=== PATIENT | female | born 1965 | race African-American/Black ===

== ENCOUNTER 2016-09-17 13:51 | Emergency (ER) | payer OTHER ==
--- NOTE | 2016-09-17 14:55 | ER Document Report ---
ED Medical Screen (RME) - General Chief Complaint: Chest Pain > 30 Stated Complaint: CHEST PAIN,HEADACHE,BLURRED VISION Notes: This 50-year-old female patient comes emergency room complaining of chest pain that started today, a right frontal headache, and blurry vision that comes and goes. She has had some recent stressful situations with her daughter, the symptoms started after her daughter came back to the house today. She does have a history of trigeminal neuralgia on the right side but this is nothing like a trigeminal neuralgia pain. She did have a CVA in May 2016. The right posterior cervical muscles and right parietal frontal scalp muscles are very tender to palpate. I have greeted and performed a rapid initial assessment of this patient. A comprehensive ED assessment and evaluation of the patient, analysis of test results and completion of the medical decision making process will be conducted by additional ED providers. TRAVEL OUTSIDE OF THE [place] IN LAST 30 DAYS: No - Related Data Allergies/Adverse Reactions: amoxicillin trihydrate [From Augmentin] Allergy (Unknown, Verified 09/17/16 14: 34) rash/hives Iodinated Contrast Media - Oral and [IV Dye, Iodine Containing] Allergy (Unknown , Verified 09/17/16 14:34) breathing problems Potassium Clavulanate * [From Augmentin] Allergy (Unknown, Verified 09/17/16 14: 34) rash/hives oxcarbazepine [From Trileptal] Allergy (Verified 09/17/16 14:34) Generalized rash Past Medical History - Past Medical History Cardiac Medical History: Reports: Hx Hypercholesterolemia, Hx Hypertension, Hx Heart Murmur - MVP Pulmonary Medical History: Reports: Hx Bronchitis, Hx Pneumonia Renal/ Medical History: Reports: Hx Ovarian Cysts - ovaries removed. Denies: Hx Peritoneal Dialysis GI Medical History: Reports: Hx Gastroesophageal Reflux Disease Musculoskeltal Medical History: Psychiatric Medical History: Reports: Hx Depression - MDD Infectious Medical History: Past Surgical History: Reports: Hx Cardiac Catheterization, Hx Cardiac Surgery - Pacemaker for sick sinus syndrome, Hx Section, Hx Hysterectomy, Hx Neurologic Surgery - Two procedures for right-sided trigeminal neuralgia, Hx Pacemaker - for SSS in July of 2012 - Immunizations Hx Diphtheria, Pertussis, Tetanus Vaccination: Yes Physical Exam - Vital signs Vitals: Temp Pulse Resp BP Pulse Ox 98.3 F 71 24 H 111/76 95 09/17/16 14:28 09/17/16 14:28 09/17/16 14:28 09/17/16 14:28 09/17/16 14:28 Course - Vital Signs Vital signs: Temp Pulse Resp BP Pulse Ox 98.3 F 71 24 H 111/76 95 09/17/16 14:28 09/17/16 14:28 09/17/16 14:28 09/17/16 14:28 09/17/16 14:28
[2016-09-17 15:15] LABS: ABSOLUTE EOSINOPHILS # (AUTO) 0.2 10^3/uL (0.0-0.6); ABSOLUTE MONOCYTES (AUTO) 0.5 10^3/uL (0.1-1.4); ABSOLUTE NEUT (AUTO) 4.4 10^3/uL (1.7-8.2); BASOPHILS % (AUTO) 0.4 % (0-2); EOSINOPHILS % (AUTO) 3.3 % (0-6); HEMOGLOBIN 12.2 g/dL (12.0-15.5); HGB HCT DIFFERENCE 0.6; LYMPHOCYTES % (AUTO) 27.6 % (13-45); MEAN CORPUSCULAR HEMOGLOBIN 29.6 pg (27.0-33.4); MEAN CORPUSCULAR HGB CONC 33.7 g/dL (32.0-36.0); MEAN CORPUSCULAR VOLUME 88 fl (80-97); MONOCYTES % (AUTO) 6.4 % (3-13); RED BLOOD COUNT 4.11 10^6/uL (3.72-5.28); RED CELL DISTRIBUTION WIDTH 13.6 % (11.5-14.0); SEGMENTED NEUTROPHILS % (AUTO) 62.3 % (42-78); WHITE BLOOD COUNT 7.1 10^3/uL (4.0-10.5)
[2016-09-17 15:21] LABS: APPEARANCE,URINE CLEAR; BILIRUBIN,URINE NEGATIVE (NEGATIVE); GLUCOSE, URINE NEGATIVE (NEGATIVE); KETONES,URINE NEGATIVE (NEGATIVE); LEUKOCYTE ESTERASE,URINE NEGATIVE (NEGATIVE); NITRITE,URINE NEGATIVE (NEGATIVE); PROTEIN,URINE NEGATIVE (NEGATIVE); URINE SPECIFIC GRAVITY 1.005; UROBILINOGEN,URINE NEGATIVE mg/dL (<2.0)
[2016-09-17 15:34] LABS: ALANINE AMINOTRANSFERASE 37 U/L (9-52); ALBUMIN 4.2 g/dL (3.5-5.0); ALKALINE PHOSPHATASE 53 U/L (38-126); ANION GAP 13 (5-19); ASPARTATE AMINO TRANSFERASE 25 U/L (14-36); BILIRUBIN,DIRECT 0.4 mg/dL (0.0-0.4); BILIRUBIN,TOTAL 0.8 mg/dL (0.2-1.3); BLOOD UREA NITROGEN 15 mg/dL (7-20); CALCIUM 9.6 mg/dL (8.4-10.2); CARBON DIOXIDE 25 mmol/L (22-30); CHLORIDE 106 mmol/L (98-107); CREATINE KINASE 103 U/L (30-135); CREATININE RESULT 0.94 mg/dL (0.52-1.25); GLUCOSE 91 mg/dL (75-110); POTASSIUM 4.2 mmol/L (3.6-5.0); SODIUM 143.5 mmol/L (137-145); TOTAL PROTEIN 7.5 g/dL (6.3-8.2)
[2016-09-17 15:46] LABS: CREATINE KINASE MB 0.84 ng/mL (<4.55)
[2016-09-17 15:49] LABS: TROPONIN I 0.037 ng/mL
--- NOTE | 2016-09-17 18:59 | EKG REPORT ---
SEVERITY:- OTHERWISE NORMAL ECG - SINUS RHYTHM BORDERLINE LEFT AXIS DEVIATION : Confirmed by: John Palomino 17-Sep-2016 18:59:22
--- NOTE | 2016-09-17 19:51 | ER Document Report ---
ED General - General Chief Complaint: Chest Pain > 30 Stated Complaint: CHEST PAIN,HEADACHE,BLURRED VISION Notes: Patient is a 50-year-old female with past medical history of fibromyalgia, chronic anxiety, frequent chest pain with a normal stress test in 2016, normal cardiac catheterization 2011, and is scheduled for a repeat stress test in the next 30 days presents with an episode of chest pain after argument with her daughter. States that she had into very heated argument with her child and began to develop a dull, burning retrosternal pain. Denies any radiation of the pain. No associated nausea, vomiting or diaphoresis. States she's had similar episodes in the past after stressful events. She denies any history of ACS or acute pulmonary embolus. At the time of my evaluation she denies any ongoing pain. She did take nitroglycerin which she states did not change her pain when it was present. Nothing worsens the pain. She has not seen her primary care doctor regarding today's concerns. TRAVEL OUTSIDE OF THE [place] IN LAST 30 DAYS: No - Related Data Allergies/Adverse Reactions: amoxicillin trihydrate [From Augmentin] Allergy (Unknown, Verified 09/17/16 14: 34) rash/hives Iodinated Contrast Media - Oral and [IV Dye, Iodine Containing] Allergy (Unknown , Verified 09/17/16 14:34) breathing problems Potassium Clavulanate * [From Augmentin] Allergy (Unknown, Verified 09/17/16 14: 34) rash/hives oxcarbazepine [From Trileptal] Allergy (Verified 09/17/16 14:34) Generalized rash Past Medical History - General Information source: Patient - Social History Smoking Status: Never Smoker Frequency of alcohol use: None Drug Abuse: None Lives with: Family Family History: Reviewed & Not Pertinent Patient has suicidal ideation: No Patient has homicidal ideation: No - Past Medical History Cardiac Medical History: Reports: Hx Hypercholesterolemia, Hx Hypertension, Hx Heart Murmur - MVP Pulmonary Medical History: Reports: Hx Bronchitis, Hx Pneumonia Renal/ Medical History: Reports: Hx Ovarian Cysts - ovaries removed. Denies: Hx Peritoneal Dialysis GI Medical History: Reports: Hx Gastroesophageal Reflux Disease Musculoskeltal Medical History: Psychiatric Medical History: Reports: Hx Depression - MDD Infectious Medical History: Past Surgical History: Reports: Hx Cardiac Catheterization, Hx Cardiac Surgery - Pacemaker for sick sinus syndrome, Hx Section, Hx Hysterectomy, Hx Neurologic Surgery - Two procedures for right-sided trigeminal neuralgia, Hx Pacemaker - for SSS in July of 2012 - Immunizations Hx Diphtheria, Pertussis, Tetanus Vaccination: Yes Hx Pneumococcal Vaccination: 06/03/10 Review of Systems - Review of Systems Notes: Constitutional: Negative for fever. HENT: Negative for sore throat. Eyes: Negative for visual changes. Cardiovascular: Positive for chest pain. Respiratory: Negative for shortness of breath. Gastrointestinal: Negative for abdominal pain, vomiting or diarrhea. Genitourinary: Negative for dysuria. Musculoskeletal: Negative for back pain. Skin: Negative for rash. Neurological: Negative for headaches, weakness or numbness. 10 point ROS negative except as marked above and in HPI. Physical Exam - Vital signs Vitals: Temp Pulse Resp BP Pulse Ox 98.3 F 71 24 H 111/76 95 09/17/16 14:28 09/17/16 14:28 09/17/16 14:28 09/17/16 14:28 09/17/16 14:28 Interpretation: Tachypneic - Resolved at the time of my assessment Notes: PHYSICAL EXAMINATION: GENERAL: Well-appearing, well-nourished and in no acute distress. HEAD: Atraumatic, normocephalic. EYES: Pupils equal round and reactive to light, extraocular movements intact, sclera anicteric, conjunctiva are normal. ENT: nares patent, oropharynx clear without exudates. Moist mucous membranes. NECK: Normal range of motion, supple without lymphadenopathy LUNGS: Breath sounds clear to auscultation bilaterally and equal. No wheezes rales or rhonchi. HEART: Regular rate and rhythm without murmurs ABDOMEN: Soft, nontender, normoactive bowel sounds. No guarding, no rebound. No masses appreciated. EXTREMITIES: Normal range of motion, no pitting or edema. No cyanosis. NEUROLOGICAL: No focal neurological deficits. Moves all extremities spontaneously and on command. PSYCH: Normal mood, normal affect. SKIN: Warm, Dry, normal turgor, no rashes or lesions noted. Course - Re-evaluation Re-evalutation: 09/17/16 19:49 Presentation of chest pain in an otherwise well appearing patient. Low clinical suspicion for ACS given clinical history, exam, EKG without ST elevations or depressions, initial troponin marginally above lower range of normal at 0.036. Will obtain a second troponin to trend. HEART score less than or equal to 3. PE also seems unlikely given clinical history, absence of tachycardia or dyspnea. Well's score is 0. CXR without evidence of pneumothorax or pneumonia. No widened mediastinum. Aortic dissection also seems unlikely given history, symmetric pulses, CXR, and vitals. Patient herself admits that her chest pain has resolved at this point and that she feels this episode was related to a very stressful argument with her daughter. Of note, patient probably complained of which headache in triage but denied this complaint to me. CT of the head was obtained for unclear concern and is noted to be normal. Her report of that event appears to be a tension-type headache that has completely resolved. I do not suspect an acute subarachnoid hemorrhage based on her characterization of the headache or the onset. HEART Score: History:0 EC Age:1 Risk Factors:1 Troponin:1 Total: 3 09/17/16 22:00 Second troponin has gone back to the upper limit of normal at 0.034 making an ischemic event as the cause of her chest pain extremely unlikely. Final assessment: Chest pain in a patient without evidence of cardiac or other serious etiology on workup today. I discussed with patient that, based on their age, risk factors and emergency department testing today, the likelihood that their symptoms are related to a heart attack is very low (estimated risk of heart attack or over the next 30 days of less than 1%). The patient demonstrates decision making capacity and has verbalized an understanding of these risks to me. Based on this, the patient has chosen to follow-up as an outpatient. Usual chest pain return precautions reviewed. The patient states understanding and agreement with this plan. - Vital Signs Vital signs: Temp Pulse Resp BP Pulse Ox 98.3 F 70 16 115/75 97 09/17/16 14:28 09/17/16 22:23 09/17/16 22:23 09/17/16 22:23 09/17/16 22:23 - Laboratory Result Diagrams: 09/17/16 14:50 09/17/16 14:50 - Diagnostic Test Radiology reviewed: Image reviewed, Reports reviewed Radiology results interpreted by me: 09/17/16 19:53 Chest x-ray: No acute infiltrate or widened mediastinum - EKG Interpretation by Me Additional EKG results interpreted by me: 09/17/16 19:53 Normal sinus rhythm. Rate 74. No ST elevations or depressions. QTC is 432. Discharge - Discharge Clinical Impression: Chest pain Qualifiers: Chest pain type: other chest pain Qualified Code(s): R07.89 - Other chest pain Condition: Good Disposition: HOME, SELF-CARE Additional Instructions: You were seen today for chest pain. The exact cause of your pain is unclear. However, based on your cardiac enzyme testing, chest x-ray, and EKG it does not appear that it is from an immediately life-threatening cause at this time. Although your testing here is normal is critical that you follow-up with your primary care physician for continued evaluation of this chest pain and possible stress testing. I recommended you see your physician within the next 24-48 hours to be evaluated for consideration of a stress test. Please return to emergency department immediately if you have worsening of your chest pain, shortness of breath, vomiting, become unable to exert yourself due to pain or difficulty breathing, you pass out, or have any pain that radiates into your arms, jaw, or back. Please also return if you have any additional symptoms that are concerning to you.
[2016-09-17 22:23] VITALS: BP 115/75
== END 2016-09-17 22:23 | disposition home or self-care (01) ==
LOC: ER 13:51
DX: R07.89 Other chest pain (principal); R51 Headache; H53.8 Other visual disturbances; E78.00 Pure hypercholesterolemia, unspecified; I10 Essential (primary) hypertension; Z95.0 Presence of cardiac pacemaker
CPT/HCPCS: 36415; 70450; 80053; 81001; 82550; 82553; 84484; 85025; 93005; 93010; 99285

== ENCOUNTER 2016-10-08 16:43 | Emergency (ER) | payer OTHER ==
[2016-10-08] MEDS ORDERED: ASPIRIN 81 MG TABLET, CHEWABLE PO ONE (17:15)
--- NOTE | 2016-10-08 17:16 | ER Document Report ---
ED Medical Screen (RME) - General Chief Complaint: Chest Pain Stated Complaint: CHEST PAIN Time Seen by Provider: 10/08/16 17:11 TRAVEL OUTSIDE OF THE [place] IN LAST 30 DAYS: No - HPI Notes: 10/08/16 17:15 Patient coming in for evaluation of chest pressure starting approximately one hour prior to arrival [facility] 10/08/16 17:15 Patient was recently seen for similar symptoms - Related Data Allergies/Adverse Reactions: amoxicillin trihydrate [From Augmentin] Allergy (Unknown, Verified 10/08/16 17: 02) rash/hives Iodinated Contrast Media - Oral and [IV Dye, Iodine Containing] Allergy (Unknown , Verified 10/08/16 17:02) breathing problems Potassium Clavulanate * [From Augmentin] Allergy (Unknown, Verified 10/08/16 17: 02) rash/hives oxcarbazepine [From Trileptal] Allergy (Verified 10/08/16 17:02) Generalized rash Past Medical History - Past Medical History Cardiac Medical History: Reports: Hx Hypercholesterolemia, Hx Hypertension, Hx Heart Murmur - MVP Pulmonary Medical History: Reports: Hx Bronchitis, Hx Pneumonia Renal/ Medical History: Reports: Hx Ovarian Cysts - ovaries removed. Denies: Hx Peritoneal Dialysis GI Medical History: Reports: Hx Gastroesophageal Reflux Disease Musculoskeltal Medical History: Psychiatric Medical History: Reports: Hx Depression - MDD Infectious Medical History: Past Surgical History: Reports: Hx Cardiac Catheterization, Hx Cardiac Surgery - Pacemaker for sick sinus syndrome, Hx Section, Hx Hysterectomy, Hx Neurologic Surgery - Two procedures for right-sided trigeminal neuralgia, Hx Pacemaker - for SSS in July of 2012 - Immunizations Hx Diphtheria, Pertussis, Tetanus Vaccination: Yes Review of Systems - Review of Systems Cardiovascular: Chest pain Physical Exam - Vital signs Vitals: Temp Pulse Resp BP Pulse Ox 98.4 F 70 22 H 118/65 97 10/08/16 17:02 10/08/16 17:02 10/08/16 17:02 10/08/16 17:02 10/08/16 17:02 - Cardiovascular Rhythm: Regular Heart sounds: Normal auscultation Course - Re-evaluation Re-evalutation: 10/08/16 17:16 I have greeted and performed a rapid initial assessment of this patient. A comprehensive ED assessment and evaluation of the patient, analysis of test results and completion of the medical decision making process will be conducted by additional ED providers. - Vital Signs Vital signs: Temp Pulse Resp BP Pulse Ox 98.4 F 70 22 H 118/65 97 10/08/16 17:02 10/08/16 17:02 10/08/16 17:02 10/08/16 17:02 10/08/16 17:02
[2016-10-08 17:47] LABS: ABSOLUTE EOSINOPHILS # (AUTO) 0.3 10^3/uL (0.0-0.6); ABSOLUTE LYMPHOCYTES (AUTO) 2.6 10^3/uL (0.5-4.7); ABSOLUTE MONOCYTES (AUTO) 0.5 10^3/uL (0.1-1.4); ABSOLUTE NEUT (AUTO) 3.8 10^3/uL (1.7-8.2); BASOPHILS % (AUTO) 0.6 % (0-2); EOSINOPHILS % (AUTO) 4.2 % (0-6); HEMATOCRIT 37.6 % (36.0-47.0); HEMOGLOBIN 12.5 g/dL (12.0-15.5); HGB HCT DIFFERENCE -0.1; MEAN CORPUSCULAR HEMOGLOBIN 29.2 pg (27.0-33.4); MEAN CORPUSCULAR HGB CONC 33.4 g/dL (32.0-36.0); MEAN CORPUSCULAR VOLUME 88 fl (80-97); MONOCYTES % (AUTO) 7.2 % (3-13); RED BLOOD COUNT 4.29 10^6/uL (3.72-5.28); RED CELL DISTRIBUTION WIDTH 13.8 % (11.5-14.0); WHITE BLOOD COUNT 7.3 10^3/uL (4.0-10.5)
[2016-10-08 17:55] LABS: PROTHROMBIN TIME 12.1 SEC (11.4-15.4)
[2016-10-08 18:07] LABS: ALANINE AMINOTRANSFERASE 37 U/L (9-52); ALBUMIN 4.4 g/dL (3.5-5.0); ALKALINE PHOSPHATASE 52 U/L (38-126); ANION GAP 10 (5-19); ASPARTATE AMINO TRANSFERASE 21 U/L (14-36); BILIRUBIN,DIRECT 0.4 mg/dL (0.0-0.4); BILIRUBIN,TOTAL 0.7 mg/dL (0.2-1.3); BLOOD UREA NITROGEN 12 mg/dL (7-20); CARBON DIOXIDE 28 mmol/L (22-30); CHLORIDE 104 mmol/L (98-107); CREATINE KINASE 123 U/L (30-135); CREATININE RESULT 1.12 mg/dL (0.52-1.25); GLUCOSE 96 mg/dL (75-110); LIPASE 169.8 U/L (23-300); POTASSIUM 3.8 mmol/L (3.6-5.0); TOTAL PROTEIN 7.9 g/dL (6.3-8.2)
--- NOTE | 2016-10-08 18:10 | ER Document Report ---
ED Cardiac <JAIRO ALLISON - Last Filed: 10/08/16 20:40> - General Mode of Arrival: Ambulatory Information source: Patient TRAVEL OUTSIDE OF THE [place] IN LAST 30 DAYS: No - HPI Patient complains to provider of: Chest pain Associated symptoms: Other - See above <CARIN ELLER - Last Filed: 10/08/16 20:42> - General Chief Complaint: Chest Pain Stated Complaint: CHEST PAIN Time Seen by Provider: 10/08/16 17:11 Notes: Patient is a 51 year old female, with a past medical history including fibromyalgia, CVA, and has a pacemaker, who presents to the emergency department complaining of chest pain at around 1600 today. Patient states she has been running errands all day and was at the [facility] filling out paperwork when she started having a headache shortly after which she felt chest pain. Patient reports she took Nitro at home with some relief but still feels a pressure across her chest. Patient also complains of left sided jaw pain and some pain around her pacemaker which has been occurring for a while. Patient denies being on blood thinners, states she is currently taking Lipitor, omeprazol, trazodone , clonazepam, and no blood pressure medication. Patient has had a catheterization done in the past and does not have CAD. Patient reports she has appointments with Dr. Gilman later this month and next for cardiac testing. (CARIN ELLER) - Related Data Allergies/Adverse Reactions: amoxicillin trihydrate [From Augmentin] Allergy (Unknown, Verified 10/08/16 17: 02) rash/hives Iodinated Contrast Media - Oral and [IV Dye, Iodine Containing] Allergy (Unknown , Verified 10/08/16 17:02) breathing problems Potassium Clavulanate * [From Augmentin] Allergy (Unknown, Verified 10/08/16 17: 02) rash/hives oxcarbazepine [From Trileptal] Allergy (Verified 10/08/16 17:02) Generalized rash Past Medical History - General Information source: Patient - Social History Smoking Status: Unknown if Ever Smoked Family History: Reviewed & Not Pertinent Patient has suicidal ideation: No Patient has homicidal ideation: No - Past Medical History Cardiac Medical History: Reports: Hx Hypercholesterolemia, Hx Hypertension, Hx Heart Murmur - MVP Pulmonary Medical History: Reports: Hx Bronchitis, Hx Pneumonia Renal/ Medical History: Reports: Hx Ovarian Cysts - ovaries removed GI Medical History: Reports: Hx Gastroesophageal Reflux Disease Musculoskeltal Medical History: Psychiatric Medical History: Reports: Hx Depression - MDD Infectious Medical History: Past Surgical History: Reports: Hx Cardiac Catheterization, Hx Cardiac Surgery - Pacemaker for sick sinus syndrome, Hx Section, Hx Hysterectomy, Hx Neurologic Surgery - Two procedures for right-sided trigeminal neuralgia, Hx Pacemaker - for SSS in July of 2012 - Immunizations Hx Diphtheria, Pertussis, Tetanus Vaccination: Yes Hx Pneumococcal Vaccination: 06/03/10 <CARIN ELLER - Last Filed: 10/08/16 20:42> Review of Systems - Review of Systems Neurological/Psychological: Gait changes - Patient reports a residual right lower extremity problem in that she has trouble lifting her leg up as high as she did prior to her stroke, Numbness - Patient has residual numbness to the right face that tends to come and go. <JAIRO ALLISON - Last Filed: 10/08/16 20:40> - Review of Systems Constitutional: No symptoms reported EENT: See HPI, Throat pain - jaw pain Cardiovascular: See HPI, Chest pain Respiratory: No symptoms reported Gastrointestinal: No symptoms reported Genitourinary: No symptoms reported Female Genitourinary: No symptoms reported Musculoskeletal: No symptoms reported Skin: No symptoms reported Hematologic/Lymphatic: No symptoms reported Neurological/Psychological: See HPI, Headaches -: Yes All other systems reviewed and negative <CARIN ELLER - Last Filed: 10/08/16 20:42> Physical Exam - Vital signs Interpretation: Normal - General General appearance: Appears well, Alert - HEENT Head: Normocephalic, Atraumatic Neck: Other - Left jaw is tender to palpation, TMJ not tender, post cervical muscles not tender - Respiratory Respiratory status: No respiratory distress Chest status: Tender - Left sided anterior chest wall tenderness to palpation Breath sounds: Normal Chest palpation: Normal - Cardiovascular Rhythm: Regular Heart sounds: Normal auscultation Murmur: No - Abdominal Inspection: Obese Distension: No distension Bowel sounds: Normal Tenderness: Nontender Organomegaly: No organomegaly - Extremities General upper extremity: Normal inspection General lower extremity: Normal inspection - Neurological Neuro grossly intact: Yes Cognition: Normal Orientation: AAOx4 Hensley Coma Scale Eye Opening: Spontaneous Lucian Coma Scale Verbal: Oriented Lucian Coma Scale Motor: Obeys Commands Hensley Coma Scale Total: 15 Speech: Normal - Psychological Associated symptoms: Normal affect, Normal mood - Skin Skin Temperature: Warm Skin Moisture: Dry Skin Color: Normal <CARIN ELLER - Last Filed: 10/08/16 20:42> - Vital signs Vitals: Temp Pulse Resp BP Pulse Ox 98.4 F 70 22 H 118/65 97 10/08/16 17:02 10/08/16 17:02 10/08/16 17:02 10/08/16 17:02 10/08/16 17:02 Course - Laboratory Result Diagrams: 10/08/16 17:25 10/08/16 17:25 - Diagnostic Test Radiology reviewed: Image reviewed, Reports reviewed - Mild basilar subsegmental atelectasis, left greater than right. Pacemaker is seen. - EKG Interpretation by Md EKG shows normal: Sinus rhythm, [place], Intervals, QRS Complexes. abnormal: ST-T Waves - Borderline anterior lateral T-wave abnormalities Rate: Normal - 69 Rhythm: NSR When compared to previous EKG there are: No significant change <JAIRO ALLISON - Last Filed: 10/08/16 20:40> - Laboratory Result Diagrams: 10/08/16 17:25 10/08/16 17:25 <CARIN ELLER - Last Filed: 10/08/16 20:42> - Re-evaluation Re-evalutation: 10/08/16 20:28 The patient's initial troponin and repeat troponin are in the low indeterminate range, they were in the same range when she was here about a month ago complaining of chest pain and when she was admitted for stroke in the end of May 2016. She has had a cardiac catheter in the past that did not show coronary artery disease. Her EKG today does not show any acute changes, and is essentially unchanged from prior visits. She does have reproducible chest wall pain and left jaw pain. (JAIRO ALLISON) - Vital Signs Vital signs: Temp Pulse Resp BP Pulse Ox 98.4 F 70 15 99/70 L 97 10/08/16 17:02 10/08/16 17:02 10/08/16 18:01 10/08/16 18:01 10/08/16 18:01 - Laboratory Laboratory results interpreted by me: 10/08/16 17:25 Est GFR (Non-Af Amer) 51 L Discharge <JAIRO ALLISON - Last Filed: 10/08/16 20:40> <CARIN ELLER - Last Filed: 10/08/16 20:42> - Discharge Clinical Impression: Chest pain, Jaw pain, non-TMJ Condition: Stable Disposition: HOME, SELF-CARE Additional Instructions: Chest Pain of Unclear Cause: The exact cause of your chest pain isn't clear. Fortunately, there is no evidence of a dangerous medical condition. Further testing may be required to find the source of the pain. Most often, we find that this pain is coming from the chest wall -- the muscles or rib joints in the chest. But chest pain can come from the lung and lung lining, the esophagus, the heart valves or heart lining, and even the stomach or gallbladder. Rest. Eat lightly until the pain is gone. We may prescribe medicine for pain and inflammation. You should call the physician immediately if the pain radiates to the shoulder, jaw or arms; if you start to run a fever or develop a cough; or if you develop shortness of breath, or other new or alarming symptoms. CONTINUE YOUR REGULAR MEDICATIONS. FOLLOW UP WITH YOUR DOCTOR. RETURN TO THE EMERGENCY ROOM IF ANY NEW OR WORSENING SYMPTOMS. Referrals: JOHNNY JUDD FNP [Primary Care Provider] - Follow up as needed Scribe Attestation: 10/08/16 20:41 I personally performed the services described in the documentation, reviewed and edited the documentation which was dictated to the scribe in my presence, and it accurately records my words and actions. (JAIRO ALLISON) Scribe Documentation - Scribe Written by Eitan:: eitan Garcia, 10/08/16 1830 acting as scribe for :: Briseida <CARIN ELLER - Last Filed: 10/08/16 20:42>
[2016-10-08 18:18] LABS: CREATINE KINASE MB 0.89 ng/mL (<4.55)
[2016-10-08 18:21] LABS: TROPONIN I 0.038 ng/mL
[2016-10-08 20:21] LABS: CREATINE KINASE MB 0.72 ng/mL (<4.55); TROPONIN I 0.041 ng/mL
[2016-10-08 20:54] VITALS: BP 108/74
--- NOTE | 2016-10-08 21:34 | EKG REPORT ---
SEVERITY:- BORDERLINE ECG - SINUS RHYTHM : Confirmed by: John Palomino 08-Oct-2016 21:33:17
== END 2016-10-08 20:54 | disposition home or self-care (01) ==
LOC: ER 16:43
DX: R07.89 Other chest pain (principal); R68.84 Jaw pain; K21.9 Gastro-esophageal reflux disease without esophagitis; R26.89 Other abnormalities of gait and mobility; R51 Headache; R20.0 Anesthesia of skin; I10 Essential (primary) hypertension; I49.5 Sick sinus syndrome; Z95.0 Presence of cardiac pacemaker; Z86.73 Personal history of transient ischemic attack (TIA), and cerebral infarction without residual deficits; Z79.899 Other long term (current) drug therapy; Z88.0 Allergy status to penicillin; Z91.041 Radiographic dye allergy status; Z88.8 Allergy status to other drugs, medicaments and biological substances; E78.00 Pure hypercholesterolemia, unspecified
CPT/HCPCS: 36415; 71010; 80053; 82550; 82553; 83690; 84484; 85025; 85379; 85610; 93005; 93010; 99285

== ENCOUNTER 2016-12-20 18:17 | Emergency (ER) | payer OTHER ==
--- NOTE | 2016-12-20 19:11 | ER Document Report ---
HPI - HPI Patient complains to provider of: Left-sided neck pain Onset: Other - 5 Weeks Onset/Duration: Waxing and waning Quality of pain: Burning Pain Level: 2 Context: patient complains of left side neck pain off and on for the past 5 weeks. Patient states episodes will last just a few seconds to upwards as long as an hour. Patient states pain is burning in nature. States that she is also had pain radiating up the side of her neck for the past 2-3 days. Patient states this pain is more constant and dull in nature. Patient denies any fever, sore throat. Does report some sinus congestion recently. Associated Symptoms: Earache, Other - neck pain. denies: Chest pain, Productive cough Exacerbated by: Denies Relieved by: Denies Similar symptoms previously: No Recently seen / treated by doctor: No - ROS ROS below otherwise negative: Yes Systems Reviewed and Negative: Yes All other systems reviewed and negative - CONSTITUTIONAL Constitutional: DENIES: Fever, Chills - EENT EENT: REPORTS: Ear Pain, Congestion Notes: left side neck pain - CARDIOVASCULAR Cardiovascular: DENIES: Chest pain - RESPIRATORY Respiratory: DENIES: Trouble Breathing, Coughing - GASTROINTESTINAL Gastrointestinal: DENIES: Nausea, Patient vomiting - REPRODUCTIVE Reproductive: DENIES: : - MUSCULOSKELETAL Musculoskeletal: REPORTS: Neck Pain - DERM Skin Color: K[place] Skin Problems: None Past Medical History - General Information source: Patient - Social History Smoking Status: Never Smoker Chew tobacco use (# tins/day): No Frequency of alcohol use: None Drug Abuse: None Occupation: none Lives with: Family Family History: Reviewed & Not Pertinent Patient has suicidal ideation: No Patient has homicidal ideation: No - Past Medical History Cardiac Medical History: Reports: Hx Hypercholesterolemia, Hx Hypertension, Hx Heart Murmur - MVP Pulmonary Medical History: Reports: Hx Bronchitis, Hx Pneumonia Comment Only: Hx COPD - sleep apnea Neurological Medical History: Reports: Hx Cerebrovascular Accident Renal/ Medical History: Reports: Hx Ovarian Cysts - ovaries removed. Denies: Hx Peritoneal Dialysis GI Medical History: Reports: Hx Gastroesophageal Reflux Disease Musculoskeltal Medical History: Psychiatric Medical History: Reports: Hx Depression - MDD Infectious Medical History: Past Surgical History: Reports: Hx Cardiac Catheterization, Hx Cardiac Surgery - Pacemaker for sick sinus syndrome, Hx Section, Hx Hysterectomy, Hx Neurologic Surgery - Two procedures for right-sided trigeminal neuralgia, Hx Pacemaker - for SSS in July of 2012 - Immunizations Hx Diphtheria, Pertussis, Tetanus Vaccination: Yes Hx Pneumococcal Vaccination: 06/03/10 Vertical Provider Document - CONSTITUTIONAL Agree With Documented VS: Yes Exam Limitations: No Limitations General Appearance: WD/WN, No Apparent Distress - INFECTION CONTROL TRAVEL OUTSIDE OF THE [place] IN LAST 30 DAYS: No - HEENT HEENT: Atraumatic, Normocephalic. negative: Pharyngeal Exudate, Pharyngeal Tenderness, Pharyngeal Erythema, Tympanic Membrane Red, Tympanic Membrane Bulging - NECK Neck: Supple. negative: Lymphadenopathy-Left, Lymphadenopathy-Right Notes: Patient with prominent left external jugular vein. Patient's tenderness reproduced with palpation of this vessel. No other masses or abnormalities appreciated to left side of neck. - RESPIRATORY Respiratory: Breath Sounds Normal, No Respiratory Distress, Chest Non-Tender O2 Sat by Pulse Oximetry: 98 - CARDIOVASCULAR Cardiovascular: Regular Rate, Regular Rhythm, No Murmur Pulses: Normal: Radial - BACK Back: Normal Inspection - MUSCULOSKELETAL/EXTREMETIES Musculoskeletal/Extremeties: VALENTE LEBLANC - NEURO Level of Consciousness: Awake, Alert, Appropriate Motor/Sensory: No Motor Deficit - DERM Integumentary: Warm, Dry, No Rash Course - Re-evaluation Re-evalutation: 12/20/16 19:[address] Vitale, Dr Vitale to bedside for exam. Advises ct noncontrasted of neck with basic labs, may consider doppler vascular study 12/20/16 19:[address] davenport (reading doppler studies) who advises ordering doppler study of upper extremity 12/20/16 20:54 Bedside report and handoff given to Pallavi Mukherjee RESIDENTIAL PROGRAM MANAGER - Vital Signs Vital signs: Temp Pulse Resp BP Pulse Ox 98.4 F 66 16 115/74 98 12/20/16 18:21 12/20/16 18:21 12/20/16 18:21 12/20/16 18:21 12/20/16 18:21 - Diagnostic Test Radiology reviewed: Reports reviewed Discharge - Discharge Clinical Impression: Neck pain on left side, external jugular vein tenderness Condition: Stable Additional Instructions: Return immediately for any new or worsening symptoms Followup with your primary care provider, call tomorrow to make a followup appointment Follow-up with your ear nose and throat doctor as planned Follow-up with a vascular surgeon, such as Dr. Davenport, for further evaluation of prominent, tender neck vein Referrals: [facility] [Provider Group] - Follow up as needed ZAYRA DAVENPORT MD [ACTIVE STAFF] - Follow up as needed
--- NOTE | 2016-12-20 19:58 | RADIOLOGY REPORT (SQ) ---
EXAM DESCRIPTION: CT SOFT TISSUE NECK WITHOUT COMPLETED DATE/TIME: 12/20/2016 7:42 pm REASON FOR STUDY: left side neck tenderness COMPARISON: None. TECHNIQUE: Noncontrast scanning from skull base through lung apices with review of bone, soft tissue and lung windows. Reconstructed coronal and sagittal MPR images reviewed. All images stored on PAC S. All CT scanners at this facility use dose modulation, iterative reconstruction, and/or weight based d osing when appropriate to reduce radiation dose to as low as reasonably achievable (ALARA). [facility]: Dose Right [facility]: CareDose [facility]: Dose Right [facility]: Teradose 4D [facility]: Smart CareToSave RADIATION DOSE: Up-to-date CT equipment and radiation dose reduction techniques were employed. CTDIv ol: 17.6 mGy. DLP: 576 mGy-cm. mGy. LIMITATIONS: None. FINDINGS: SKULL BASE: Intact. MAJOR SALIVARY GLANDS: No solid or cystic masses. No inflammatory changes. LYMPHADENOPATHY: No adenopathy. MUCOSAL MASSES OR ASYMMETRY: No mucosal masses or asymmetry. LARYNX/CORDS: No abnormal findings. LUNG APICES: Clear. BONES: Intact. THYROID: Normal size. No masses. PARANASAL SINUSES: Fluid noted in the right maxillary sinus dependently. The remaining paranasal sin uses are clear. OTHER: No other significant finding. IMPRESSION: Moderate amount of fluid noted in the right maxillary sinus. No other acute abnormality identified on this noncontrast study of the soft tissue neck. Multilevel degenerative changes noted throughout the cervical spine. TECHNICAL DOCUMENTATION: JOB ID: [id number] Quality ID # [id number]: Final reports with documentation of one or more dose reduction techniques (e.g., Au tomated exposure control, adjustment of the mA and/or kV according to patient size, use of iterative reconstruction technique) 2010 [employer]- All Rights Reserved
[2016-12-20 21:07] LABS: ABSOLUTE EOSINOPHILS # (AUTO) 0.2 10^3/uL (0.0-0.6); ABSOLUTE LYMPHOCYTES (AUTO) 2.1 10^3/uL (0.5-4.7); ABSOLUTE MONOCYTES (AUTO) 0.4 10^3/uL (0.1-1.4); ABSOLUTE NEUT (AUTO) 3.1 10^3/uL (1.7-8.2); BASOPHILS % (AUTO) 0.4 % (0-2); EOSINOPHILS % (AUTO) 3.3 % (0-6); HEMATOCRIT 39.5 % (36.0-47.0); HEMOGLOBIN 12.9 g/dL (12.0-15.5); HGB HCT DIFFERENCE -0.8; LYMPHOCYTES % (AUTO) 36.4 % (13-45); MEAN CORPUSCULAR HEMOGLOBIN 29.2 pg (27.0-33.4); MEAN CORPUSCULAR HGB CONC 32.7 g/dL (32.0-36.0); MEAN CORPUSCULAR VOLUME 89 fl (80-97); MONOCYTES % (AUTO) 7.6 % (3-13); RED BLOOD COUNT 4.42 10^6/uL (3.72-5.28); SEGMENTED NEUTROPHILS % (AUTO) 52.3 % (42-78); WHITE BLOOD COUNT 5.9 10^3/uL (4.0-10.5)
[2016-12-20 21:29] LABS: ALANINE AMINOTRANSFERASE 25 U/L (9-52); ALBUMIN 4.1 g/dL (3.5-5.0); ALKALINE PHOSPHATASE 63 U/L (38-126); ANION GAP 11 (5-19); ASPARTATE AMINO TRANSFERASE 26 U/L (14-36); BILIRUBIN,DIRECT 0.3 mg/dL (0.0-0.4); BILIRUBIN,TOTAL 0.6 mg/dL (0.2-1.3); BLOOD UREA NITROGEN 13 mg/dL (7-20); CALCIUM 9.2 mg/dL (8.4-10.2); CARBON DIOXIDE 24 mmol/L (22-30); CHLORIDE 108 mmol/L (98-107); CREATININE RESULT 1.14 mg/dL (0.52-1.25); GLUCOSE 91 mg/dL (75-110); SODIUM 142.7 mmol/L (137-145); TOTAL PROTEIN 7.8 g/dL (6.3-8.2)
[2016-12-20 22:54] VITALS: BP 111/72
--- NOTE | 2016-12-21 16:58 | XCELERA REPORT ---
[address] [address] Upper Extremity Venous Evaluation Name: LIGIA ADLER V Age: 51 yrs Gender: Female : 1965 Patient Status: Emergency Patient Location: ER Study Date: 12/20/2016 08:11 PM Procedure: Unilateral duplex scan of the left upper extremity veins was performed, including responses to compression and other maneuvers. Reason For Study: left side neck tenderness, prominent EJ Ordering Physician: KEV CARLISLE Performed By: Ibeth Blankenship Left Sided Venous Evaluation Normal vessel filling wall to wall, compression and augmentation as well as Colour flow down to the forearm veins. Critical Findings Called in to the ER. Interpretation Summary Normal compression, patency, spontaneous and phasic flow of the left upper extremity veins. : KEV CARLISLE > Ramon Borges
== END 2016-12-20 22:55 | disposition home or self-care (01) ==
LOC: ER 18:17
DX: M54.2 Cervicalgia (principal); H92.09 Otalgia, unspecified ear; R09.89 Other specified symptoms and signs involving the circulatory and respiratory systems; I10 Essential (primary) hypertension; I49.5 Sick sinus syndrome; Z95.0 Presence of cardiac pacemaker; Z86.73 Personal history of transient ischemic attack (TIA), and cerebral infarction without residual deficits
CPT/HCPCS: 36415; 70490; 80053; 85025; 93971; 99284

== ENCOUNTER 2017-01-20 19:52 | Emergency (ER) | payer OTHER ==
[2017-01-20] MEDS ORDERED: ASPIRIN 81 MG TABLET, CHEWABLE PO ONE (20:07)
--- NOTE | 2017-01-20 20:48 | RADIOLOGY REPORT (SQ) ---
EXAM DESCRIPTION: CHEST SINGLE VIEW COMPLETED DATE/TIME: 01/20/2017 8:39 pm REASON FOR STUDY: cp COMPARISON: 10/08/2016 EXAM PARAMETERS: NUMBER OF VIEWS: One view. TECHNIQUE: Single frontal radiographic view of the chest acquired. RADIATION DOSE: NA LIMITATIONS: None. FINDINGS: LUNGS AND PLEURA: No opacities, masses or pneumothorax. No pleural effusion. MEDIASTINUM AND HILAR STRUCTURES: No masses. Contour normal. HEART AND VASCULAR STRUCTURES: The configuration of the heart and mediastinal structures is unchanged . BONES: No acute findings. HARDWARE: Dual chamber transvenous pacemaker is unchanged in position. OTHER: No other significant finding. IMPRESSION: NO ACUTE RADIOGRAPHIC FINDING IN THE CHEST. TECHNICAL DOCUMENTATION: JOB ID: [id number]
--- NOTE | 2017-01-20 20:51 | RADIOLOGY REPORT (SQ) ---
EXAM DESCRIPTION: CT HEAD WITHOUT COMPLETED DATE/TIME: 01/20/2017 8:41 pm REASON FOR STUDY: stroke alert COMPARISON: None. TECHNIQUE: Axial images acquired through the brain without intravenous contrast. Images reviewed wi th bone, brain and subdural windows. Images stored on PACS. All CT scanners at this facility use dose modulation, iterative reconstruction, and/or weight based d osing when appropriate to reduce radiation dose to as low as reasonably achievable (ALARA). [facility]: Dose Right [facility]: CareDose [facility]: Dose Right [facility]: Teradose 4D [facility]: Smart [employer] RADIATION DOSE: mGy. LIMITATIONS: None. FINDINGS: VENTRICLES: Normal size and contour. CEREBRUM: No masses. No hemorrhage. No midline shift. Normal westfall/white matter differentiation. N o evidence for acute infarction. CEREBELLUM: No masses. No hemorrhage. No alteration of density. No evidence for acute infarction. EXTRAAXIAL SPACES: No fluid collections. No masses. ORBITS AND GLOBE: No intra- or extraconal masses. Normal contour of globe without masses. CALVARIUM: No fracture. PARANASAL SINUSES: Mucosal polyp retention cyst is identified in the right maxillary antra. SOFT TISSUES: No mass or hematoma. OTHER: No other significant finding. IMPRESSION: NORMAL BRAIN CT WITHOUT CONTRAST. COMMENT: Pertinent positive or negative findings of the imaging study reported as a CRITICAL EXAM leny LEAL MD at20:44 on 01/20/2017. Category of Critical Exam: Stroke alert TECHNICAL DOCUMENTATION: JOB ID: [id number] Quality ID # [id number]: Final reports with documentation of one or more dose reduction techniques (e.g., Au tomated exposure control, adjustment of the mA and/or kV according to patient size, use of iterative reconstruction technique) 2010 [employer]- All Rights Reserved
--- NOTE | 2017-01-20 21:10 | EKG REPORT ---
SEVERITY:- OTHERWISE NORMAL ECG - SINUS RHYTHM BORDERLINE LEFT AXIS DEVIATION : Confirmed by: Malvin Gilman MD 20-Jan-2017 21:10:18
[2017-01-20 21:17] LABS: ABSOLUTE EOSINOPHILS # (AUTO) 0.2 10^3/uL (0.0-0.6); ABSOLUTE LYMPHOCYTES (AUTO) 2.8 10^3/uL (0.5-4.7); ABSOLUTE MONOCYTES (AUTO) 0.7 10^3/uL (0.1-1.4); ABSOLUTE NEUT (AUTO) 3.7 10^3/uL (1.7-8.2); BASOPHILS % (AUTO) 0.5 % (0-2); EOSINOPHILS % (AUTO) 2.9 % (0-6); HEMATOCRIT 35.7 % (36.0-47.0); HEMOGLOBIN 12.1 g/dL (12.0-15.5); HGB HCT DIFFERENCE 0.6; LYMPHOCYTES % (AUTO) 37.8 % (13-45); MEAN CORPUSCULAR HGB CONC 33.9 g/dL (32.0-36.0); MEAN CORPUSCULAR VOLUME 88 fl (80-97); MONOCYTES % (AUTO) 9.7 % (3-13); RED BLOOD COUNT 4.04 10^6/uL (3.72-5.28); RED CELL DISTRIBUTION WIDTH 13.8 % (11.5-14.0); SEGMENTED NEUTROPHILS % (AUTO) 49.1 % (42-78); WHITE BLOOD COUNT 7.5 10^3/uL (4.0-10.5)
[2017-01-20 21:21] LABS: PROTHROMBIN TIME 12.9 SEC (11.4-15.4)
[2017-01-20 21:32] LABS: ALANINE AMINOTRANSFERASE 37 U/L (9-52); ALBUMIN 4.1 g/dL (3.5-5.0); ALKALINE PHOSPHATASE 59 U/L (38-126); ANION GAP 8 (5-19); ASPARTATE AMINO TRANSFERASE 28 U/L (14-36); BILIRUBIN,DIRECT 0.4 mg/dL (0.0-0.4); BILIRUBIN,TOTAL 0.6 mg/dL (0.2-1.3); BLOOD UREA NITROGEN 8 mg/dL (7-20); CALCIUM 9.6 mg/dL (8.4-10.2); CARBON DIOXIDE 25 mmol/L (22-30); CHLORIDE 106 mmol/L (98-107); CREATINE KINASE 294 U/L (30-135); CREATININE RESULT 0.99 mg/dL (0.52-1.25); GLUCOSE 89 mg/dL (75-110); POTASSIUM 3.9 mmol/L (3.6-5.0); SODIUM 139.3 mmol/L (137-145); TOTAL PROTEIN 7.2 g/dL (6.3-8.2)
[2017-01-20] MEDS ORDERED: ALTEPLASE INJ 100 MG VIAL ONE (21:34)
--- NOTE | 2017-01-20 22:25 | ER Document Report ---
ED General - General Chief Complaint: Facial numbness, arm numbness Stated Complaint: CHEST PAIN Time Seen by Provider: 01/20/17 20:53 Mode of Arrival: Medic Information source: Patient Notes: The history is provided by the patient as well as the patient's daughter who is by the patient's side in the room. This is a 51-year-old female with a history of sick sinus syndrome, stroke in the past with resolution of symptoms, trigeminal neuralgia. The patient was usual state of health until approximately an hour and a half before arrival when she started developing numbness to the right side of the face and weakness to the right side of the face. Patient denies any headache. TRAVEL OUTSIDE OF THE [place] IN LAST 30 DAYS: No - HPI Onset: Just prior to arrival Onset/Duration: Sudden Quality of pain: No pain Severity: None Associated symptoms: None. denies: Chest pain, Fever, Shortness of breath Exacerbated by: Denies Relieved by: Denies Similar symptoms previously: Yes Recently seen / treated by doctor: No - Related Data Allergies/Adverse Reactions: amoxicillin trihydrate [From Augmentin] Allergy (Unknown, Verified 10/08/16 17: 02) rash/hives Iodinated Contrast- Oral and IV Dye [IV Dye, Iodine Containing] Allergy (Unknown , Verified 10/08/16 17:02) breathing problems Potassium Clavulanate * [From Augmentin] Allergy (Unknown, Verified 10/08/16 17: 02) rash/hives oxcarbazepine [From Trileptal] Allergy (Verified 10/08/16 17:02) Generalized rash Past Medical History - General Information source: Patient - Social History Smoking Status: Never Smoker Cigarette use (# per day): No Chew tobacco use (# tins/day): No Frequency of alcohol use: None Drug Abuse: None Lives with: Family Family History: Reviewed & Not Pertinent Patient has suicidal ideation: No - I do offer 17 normal working on it but listen to call so Dr. Zazueta on the admitting 18 Patient has homicidal ideation: No - Past Medical History Cardiac Medical History: Reports: Hx Hypercholesterolemia, Hx Hypertension, Hx Heart Murmur - MVP Pulmonary Medical History: Reports: Hx Bronchitis, Hx Pneumonia Comment Only: Hx COPD - sleep apnea Neurological Medical History: Reports: Hx Cerebrovascular Accident Renal/ Medical History: Reports: Hx Ovarian Cysts - ovaries removed. Denies: Hx Peritoneal Dialysis GI Medical History: Reports: Hx Gastroesophageal Reflux Disease Musculoskeltal Medical History: Psychiatric Medical History: Reports: Hx Depression - MDD Infectious Medical History: Past Surgical History: Reports: Hx Cardiac Catheterization, Hx Cardiac Surgery - Pacemaker for sick sinus syndrome, Hx Section, Hx Hysterectomy, Hx Neurologic Surgery - Two procedures for right-sided trigeminal neuralgia, Hx Pacemaker - for SSS in July of 2012 - Immunizations Hx Diphtheria, Pertussis, Tetanus Vaccination: Yes Hx Pneumococcal Vaccination: 06/03/10 Review of Systems - Review of Systems Constitutional: denies: Chills, Fever EENT: No symptoms reported Cardiovascular: No symptoms reported Respiratory: No symptoms reported Gastrointestinal: No symptoms reported Genitourinary: No symptoms reported Female Genitourinary: No symptoms reported Musculoskeletal: No symptoms reported Skin: No symptoms reported Hematologic/Lymphatic: No symptoms reported Neurological/Psychological: See HPI Physical Exam - Vital signs Vitals: Resp 25 H 01/20/17 20:42 Notes: Physical exam: GENERAL: 51-year-old female, alert and oriented 3, no acute distress HEAD: Atraumatic, normocephalic. EYES: Pupils equal round and reactive to light, extraocular movements intact, sclera anicteric, conjunctiva are normal. ENT: TMs normal, nares patent, oropharynx clear without exudates. Moist mucous membranes. NECK: Normal range of motion, supple without lymphadenopathy or JVD. LUNGS: Breath sounds clear to auscultation bilaterally and equal. No wheezes rales or rhonchi. HEART: Regular rate and rhythm without murmurs, rubs or gallops. ABDOMEN: Soft, normoactive bowel sounds. No tenderness to palpation. No guarding, no rebound. No masses appreciated. EXTREMITIES: Normal range of motion, no pitting or edema. No clubbing or cyanosis. NEUROLOGICAL: NIH score is as follows: Patient is alert and responsive, she is able to answer the month and the age, she can close her eyes and open them up make a fist and open them up on command , she is a good horizontal gaze, her visual garcia are intact, she does have a right facial paralysis (NIH 2), she does have right upper extremity drift (NIH 1 ), right lower extremity drift (NIH 1), she does have limb ataxia in the right upper extremity (NIH 1) I did not score any, ataxia in the right lower extremity because of a questionable gait issue at baseline. Patient does have significant numbness to the right side of her body (NIH 1), patient does well with picture description, object naming and sentence reading, she does have some dysarthria with mild slurring (NIH 1), there is no extinction or inattention. Patient's NIH score is 7. PSYCH: Normal mood, normal affect. SKIN: Warm, Dry, normal turgor, no rashes or lesions noted. Course - Re-evaluation Re-evalutation: 01/20/17 22:35 I have discussed the risks of bleeding including intracranial hemorrhage to the patient and her daughter. I have gone over the patient's baseline several times with both the patient and her daughter. They are clear that the patient had no significant weakness or numbness to the right side (that that had resolved after her last stroke). Additionally, the symptoms tonight are all new starting just prior to arrival. Given this and the NIH of 7, I have recommended them it TPA and they are agreeable after discussing the risks of bleeding as mentioned above. TPA was initiated. I have contacted [facility] and spoken to the neurologist (Dr. Hanson) and I have spoken to the hospitalist ( Dr Miramontes) who has accepted transfer. 01/20/17 23:18 I reassessed the patient just before transfer. Her numbness may be better but the weakness is still present she had just completed the TPA.. She does complain of a little headache and I gave her some Tylenol. We will have to keep an eye on that. Transport is here. - Vital Signs Vital signs: Temp Pulse Resp BP Pulse Ox 21 H 124/65 100 01/20/17 22:31 01/20/17 22:31 01/20/17 22:31 - Laboratory Result Diagrams: 01/20/17 21:00 01/20/17 21:00 Laboratory results interpreted by me: 01/20/17 01/20/17 21:00 21:00 Hct 35.7 L Est GFR (Non-Af Amer) 59 L Creatine Kinase 294 H - Diagnostic Test Radiology reviewed: Image reviewed, Reports reviewed - CT of the head shows no acute bleed. - EKG Interpretation by Me Rate: Normal Rhythm: NSR - EKG shows normal sinus rhythm with a ventricular rate of 65, no acute ST-T wave changes Critical Care Note - Critical Care Note Total time excluding time spent on procedures (mins): 90 Discharge - Discharge Clinical Impression: Acute CVA Condition: Serious Disposition: [facility]
[2017-01-20] MEDS ORDERED: ACETAMINOPHEN 325 MG TABLET PO ONE (22:57)
[2017-01-20 23:05] LABS: CREATINE KINASE MB 1.53 ng/mL (<4.55)
[2017-01-20 23:08] LABS: TROPONIN I 0.039 ng/mL
[2017-01-20 23:30] VITALS: BP 127/82
== END 2017-01-21 00:05 | disposition short-term general hospital (02) ==
LOC: ER 19:52
DX: I63.9 Cerebral infarction, unspecified (principal); R47.1 Dysarthria and anarthria; R20.0 Anesthesia of skin; R29.810 Facial weakness; I10 Essential (primary) hypertension; R51 Headache; I49.5 Sick sinus syndrome; Z95.0 Presence of cardiac pacemaker; Z88.0 Allergy status to penicillin; Z91.041 Radiographic dye allergy status; Z88.8 Allergy status to other drugs, medicaments and biological substances
CPT/HCPCS: 93005; 99291; 99292; 96365; 36415; 82553; 82962; 82550; 85025; 85610; 80053; 84484; 71010; 70450; 93010; J2997

== ENCOUNTER → 2017-01-24 | Outpatient (CLI) | payer OTHER ==
[2017-01-24 08:56] LABS: CHOLESTEROL 178.29 mg/dL (0-200); Direct HDL 61 mg/dL (>40); TRIGLYCERIDES 89 mg/dL (<150)
[2017-01-24 09:08] LABS: DIRECT LDL 77 mg/dL (<100)
== END ==
LOC: OD 07:29
PROVIDERS: ATTEND Internal Medicine Cardiovascular Disease
DX: E78.00 Pure hypercholesterolemia, unspecified (principal)
CPT/HCPCS: 36415; 80061

== ENCOUNTER → 2017-10-29 | Outpatient (CLI) | payer MEDICARE, MEDICAID ==
[2017-10-29 11:05] LABS: HEMATOCRIT 36.4 % (36.0-47.0); HEMOGLOBIN 12.1 g/dL (12.0-15.5); MEAN CORPUSCULAR HEMOGLOBIN 28.6 pg (27.0-33.4); MEAN CORPUSCULAR HGB CONC 33.3 g/dL (32.0-36.0); MEAN CORPUSCULAR VOLUME 86 fl (80-97); PLATELET COUNT 218 10^3/uL (150-450); RED BLOOD COUNT 4.24 10^6/uL (3.72-5.28); RED CELL DISTRIBUTION WIDTH 14.4 % (11.5-14.0); WHITE BLOOD COUNT 6.3 10^3/uL (4.0-10.5)
[2017-10-29 11:27] LABS: ANION GAP 11 (5-19); BLOOD UREA NITROGEN 20 mg/dL (7-20); CALCIUM 9.8 mg/dL (8.4-10.2); CARBON DIOXIDE 29 mmol/L (22-30); CHLORIDE 108 mmol/L (98-107); GLUCOSE 90 mg/dL (75-110); POTASSIUM 4.2 mmol/L (3.6-5.0)
== END ==
LOC: OD 10:14
PROVIDERS: ATTEND Internal Medicine Cardiovascular Disease
DX: Z79.899 Other long term (current) drug therapy (principal); R60.9 Edema, unspecified; R06.02 Shortness of breath
CPT/HCPCS: 36415; 80048; 83735; 83880; 85027

== ENCOUNTER → 2017-12-12 | Outpatient (CLI) | payer OTHER ==
[2017-12-12 13:35] LABS: ALANINE AMINOTRANSFERASE 36 U/L (9-52); ALBUMIN 4.4 g/dL (3.5-5.0); ALKALINE PHOSPHATASE 58 U/L (38-126); ASPARTATE AMINO TRANSFERASE 31 U/L (14-36); BILIRUBIN,DIRECT 0.3 mg/dL (0.0-0.4); BILIRUBIN,TOTAL 0.9 mg/dL (0.2-1.3); CHOLESTEROL 143.35 mg/dL (0-200); TOTAL PROTEIN 7.7 g/dL (6.3-8.2); TRIGLYCERIDES 79 mg/dL (<150)
[2017-12-12 13:46] LABS: DIRECT LDL 58 mg/dL (<100)
== END ==
LOC: LAB 13:19
PROVIDERS: ATTEND Internal Medicine Cardiovascular Disease
DX: E78.00 Pure hypercholesterolemia, unspecified (principal); Z79.899 Other long term (current) drug therapy
CPT/HCPCS: 36415; 80061; 80076

== ENCOUNTER 2018-04-25 17:54 | Emergency (ER) | payer MEDICARE, MEDICAID ==
--- NOTE | 2018-04-25 18:47 | ER Document Report ---
ED Medical Screen (RME) - General Chief Complaint: Chest Pain Stated Complaint: CHEST PAIN Time Seen by Provider: 04/25/18 18:39 Notes: 52-year-old female patient complaining of chest and right shoulder pains for the past 2 weeks. Today at 11:00 she is getting out of the car and turned to close the door and took a breath and felt a sharp stabbing pain in her chest. She reports she has had that pain persist since then. She was seen at [facility] where workup including lab work was started and then she was sent to the emergency room by EMS. Not clear why this was done. She does have a history of sick sinus syndrome with a pacemaker, and prior stroke with complete resolution. The only antiplatelet medication she takes is a baby aspirin. EMS did give nitroglycerin without change in her pain. I have greeted and performed a rapid initial assessment of this patient. A comprehensive ED assessment and evaluation of the patient, analysis of test results and completion of the medical decision making process will be conducted by additional ED providers. TRAVEL OUTSIDE OF THE [place] IN LAST 30 DAYS: No - Related Data Allergies/Adverse Reactions: amoxicillin trihydrate [From Augmentin] Allergy (Unknown, Verified 10/08/16 17: 02) rash/hives Iodinated Contrast- Oral and IV Dye [IV Dye, Iodine Containing] Allergy (Unknown , Verified 10/08/16 17:02) breathing problems Potassium Clavulanate * [From Augmentin] Allergy (Unknown, Verified 10/08/16 17: 02) rash/hives oxcarbazepine [From Trileptal] Allergy (Verified 10/08/16 17:02) Generalized rash Past Medical History - Social History Chew tobacco use (# tins/day): No Drug Abuse: None - Past Medical History Cardiac Medical History: Reports: Hx Hypercholesterolemia, Hx Hypertension, Hx Heart Murmur - MVP Pulmonary Medical History: Reports: Hx Bronchitis, Hx Pneumonia Comment Only: Hx COPD - sleep apnea Neurological Medical History: Reports: Hx Cerebrovascular Accident Renal/ Medical History: Reports: Hx Ovarian Cysts - ovaries removed. Denies: Hx Peritoneal Dialysis GI Medical History: Reports: Hx Gastroesophageal Reflux Disease Musculoskeltal Medical History: Psychiatric Medical History: Reports: Hx Depression - MDD Infectious Medical History: Past Surgical History: Reports: Hx Cardiac Catheterization, Hx Cardiac Surgery - Pacemaker for sick sinus syndrome, Hx Section, Hx Hysterectomy, Hx Neurologic Surgery - Two procedures for right-sided trigeminal neuralgia, Hx Pacemaker - for SSS in July of 2012 - Immunizations Hx Diphtheria, Pertussis, Tetanus Vaccination: Yes Physical Exam - Vital signs Vitals: Temp Pulse Resp BP Pulse Ox 98.0 F 65 16 109/69 99 04/25/18 18:13 04/25/18 18:13 04/25/18 18:13 04/25/18 18:13 04/25/18 18:13 Course - Vital Signs Vital signs: Temp Pulse Resp BP Pulse Ox 98.0 F 65 16 109/69 99 04/25/18 18:13 04/25/18 18:13 04/25/18 18:13 04/25/18 18:13 04/25/18 18:13 Doctor's Discharge - Discharge Referrals: KILLIAN VALLES MD [Primary Care Provider] - Follow up as needed
--- NOTE | 2018-04-25 19:16 | EKG REPORT ---
SEVERITY:- ABNORMAL ECG - ATRIAL-PACED RHYTHM LVH BY VOLTAGE : Confirmed by: Vanda Curtis MD 25-Apr-2018 19:15:51
--- NOTE | 2018-04-25 19:53 | RADIOLOGY REPORT (SQ) ---
EXAM DESCRIPTION: CHEST 2 VIEWS COMPLETED DATE/TIME: 04/25/2018 7:43 pm REASON FOR STUDY: Chest pain COMPARISON: None. EXAM PARAMETERS: NUMBER OF VIEWS: two views TECHNIQUE: Digital Frontal and Lateral radiographic views of the chest acquired. RADIATION DOSE: NA LIMITATIONS: none FINDINGS: LUNGS AND PLEURA: No opacities, masses or pneumothorax. No pleural effusion. MEDIASTINUM AND HILAR STRUCTURES: No masses or contour abnormalities. HEART AND VASCULAR STRUCTURES: Cardiomegaly. BONES: No acute findings. HARDWARE: Pacemaker. OTHER: No other significant finding. IMPRESSION: Cardiomegaly without kareem pulmonary edema. TECHNICAL DOCUMENTATION: JOB ID: [id number] [employer]- All Rights Reserved Reading location - IP/workstation name: [email or web address]
[2018-04-25 20:23] LABS: ABSOLUTE EOSINOPHILS # (AUTO) 0.2 10^3/uL (0.0-0.6); ABSOLUTE LYMPHOCYTES (AUTO) 2.7 10^3/uL (0.5-4.7); ABSOLUTE MONOCYTES (AUTO) 0.6 10^3/uL (0.1-1.4); ABSOLUTE NEUT (AUTO) 4.5 10^3/uL (1.7-8.2); BASOPHILS % (AUTO) 0.6 % (0-2); EOSINOPHILS % (AUTO) 2.9 % (0-6); HEMOGLOBIN 12.7 g/dL (12.0-15.5); LYMPHOCYTES % (AUTO) 33.6 % (13-45); MEAN CORPUSCULAR HEMOGLOBIN 28.8 pg (27.0-33.4); MEAN CORPUSCULAR HGB CONC 33.5 g/dL (32.0-36.0); MEAN CORPUSCULAR VOLUME 86 fl (80-97); PLATELET COUNT 217 10^3/uL (150-450); RED BLOOD COUNT 4.42 10^6/uL (3.72-5.28); RED CELL DISTRIBUTION WIDTH 13.7 % (11.5-14.0); SEGMENTED NEUTROPHILS % (AUTO) 55.9 % (42-78); TOTAL CELLS COUNTED % (AUTO) 100 %; WHITE BLOOD COUNT 8.1 10^3/uL (4.0-10.5)
[2018-04-25 20:42] LABS: ALANINE AMINOTRANSFERASE 27 U/L (9-52); ALBUMIN 4.5 g/dL (3.5-5.0); ALKALINE PHOSPHATASE 68 U/L (38-126); ANION GAP 12 (5-19); ASPARTATE AMINO TRANSFERASE 24 U/L (14-36); BILIRUBIN,DIRECT 0.2 mg/dL (0.0-0.4); BILIRUBIN,TOTAL 0.5 mg/dL (0.2-1.3); BLOOD UREA NITROGEN 16 mg/dL (7-20); CALCIUM 9.8 mg/dL (8.4-10.2); CARBON DIOXIDE 27 mmol/L (22-30); CHLORIDE 104 mmol/L (98-107); CREATINE KINASE 158 U/L (30-135); GLUCOSE 86 mg/dL (75-110); POTASSIUM 3.8 mmol/L (3.6-5.0); SODIUM 142.6 mmol/L (137-145); TOTAL PROTEIN 7.8 g/dL (6.3-8.2)
[2018-04-25 20:56] LABS: CREATINE KINASE MB 1.04 ng/mL (<4.55); TROPONIN I 0.018 ng/mL
[2018-04-25] MEDS ORDERED: KETOROLAC TROMETHAMINE 60 MG/2 ML SDV IM ONE (21:51)
[2018-04-25] MEDS ORDERED: MORPHINE SULFATE IR 15 MG TABLET PO ONE (21:51)
[2018-04-25] MEDS ORDERED: LIDOCAINE 5% (700 MG) TRANSDERMAL ADH..PATCH TP ONE (21:51)
--- NOTE | 2018-04-25 21:56 | ER Document Report ---
ED General - General Chief Complaint: Chest Pain Stated Complaint: CHEST PAIN Time Seen by Provider: 04/25/18 18:39 Notes: Patient is a 52-year-old female with a past medical history of hypertension and hyperlipidemia who presents with 2 weeks of right shoulder pain as well as right neck pain as well as approximately 8-12 hours of stabbing pain to the right chest. The patient reports that when she got out of her car today and close the door using her right arm she developed an acute stabbing pain to her right chest with radiation into the right neck and right shoulder. The pain was worsened by a deep breath. She notes associated numbness and tingling extending down the right arm. She states that since that time the pain has persisted. She has tried numt-[id number] pain medications without any relief. She was seen in urgent care, referred to the emergency department for further assessment. She has a history of sick sinus syndrome with associated pacemaker placement but has no known history of coronary artery disease. She denies any associated nausea, vomiting or shortness of breath. She states that moving her neck or shoulder worsens the pain. She denies any distinct loss of sensation or weakness to the right upper extremity. She is right-hand dominant. TRAVEL OUTSIDE OF THE [place] IN LAST 30 DAYS: No - Related Data Allergies/Adverse Reactions: amoxicillin trihydrate [From Augmentin] Allergy (Unknown, Verified 04/25/18 20: 36) rash/hives Iodinated Contrast- Oral and IV Dye [IV Dye, Iodine Containing] Allergy (Unknown , Verified 04/25/18 20:36) breathing problems Potassium Clavulanate * [From Augmentin] Allergy (Unknown, Verified 04/25/18 20: 36) rash/hives oxcarbazepine [From Trileptal] Allergy (Verified 04/25/18 20:36) Generalized rash morphine Adverse Reaction (Severe, Verified 04/25/18 22:15) Change in behavior Past Medical History - General Information source: Patient - Social History Smoking Status: Never Smoker Chew tobacco use (# tins/day): No Frequency of alcohol use: None Drug Abuse: None Lives with: Family Family History: Reviewed & Not Pertinent Patient has suicidal ideation: No Patient has homicidal ideation: No - Past Medical History Cardiac Medical History: Reports: Hx Hypercholesterolemia, Hx Hypertension, Hx Heart Murmur - MVP Pulmonary Medical History: Reports: Hx Bronchitis, Hx Pneumonia Comment Only: Hx COPD - sleep apnea Neurological Medical History: Reports: Hx Cerebrovascular Accident Renal/ Medical History: Reports: Hx Ovarian Cysts - ovaries removed. Denies: Hx Peritoneal Dialysis GI Medical History: Reports: Hx Gastroesophageal Reflux Disease Musculoskeletal Medical History: Psychiatric Medical History: Reports: Hx Depression - MDD Infectious Medical History: Past Surgical History: Reports: Hx Cardiac Catheterization, Hx Cardiac Surgery - Pacemaker for sick sinus syndrome, Hx Section, Hx Hysterectomy, Hx Neurologic Surgery - Two procedures for right-sided trigeminal neuralgia, Hx Pacemaker - for SSS in July of 2012 - Immunizations Hx Diphtheria, Pertussis, Tetanus Vaccination: Yes Hx Pneumococcal Vaccination: 06/03/10 Review of Systems - Review of Systems Notes: Constitutional: Negative for fever. HENT: Negative for sore throat. Eyes: Negative for visual changes. Cardiovascular: Negative for chest pain. Respiratory: Negative for shortness of breath. Gastrointestinal: Negative for abdominal pain, vomiting or diarrhea. Genitourinary: Negative for dysuria. Musculoskeletal: Positive for right neck, right shoulder and right chest wall pain Skin: Negative for rash. Neurological: Negative for headaches, positive for paresthesias to the right upper extremity 10 point ROS negative except as marked above and in HPI. Physical Exam - Vital signs Vitals: Temp Pulse Resp BP Pulse Ox 98.0 F 65 16 109/69 99 04/25/18 18:13 04/25/18 18:13 04/25/18 18:13 04/25/18 18:13 04/25/18 18:13 Interpretation: Normal Notes: PHYSICAL EXAMINATION: GENERAL: Well-appearing, well-nourished and in no acute distress. HEAD: Atraumatic, normocephalic. EYES: Pupils equal round and reactive to light, extraocular movements intact, sclera anicteric, conjunctiva are normal. ENT: nares patent, oropharynx clear without exudates. Moist mucous membranes. NECK: Normal range of motion, supple without lymphadenopathy, pain with axial loading of the neck toward the right. No midline cervical spine tenderness step -offs or deformities. LUNGS: Breath sounds clear to auscultation bilaterally and equal. No wheezes rales or rhonchi. HEART: Regular rate and rhythm without murmurs ABDOMEN: Soft, nontender, normoactive bowel sounds. No guarding, no rebound. No masses appreciated. EXTREMITIES: Reproduction of pain with range of motion of the right shoulder although the patient is able to complete a full range of motion. Exam examination otherwise unremarkable. NEUROLOGICAL: Face symmetric. Tongue protrudes midline. Extraocular motions intact. Pupils are 2 mm and equally reactive. Normal speech, normal gait. 5 out of 5 strength in both the distal and proximal upper and lower extremities bilaterally. Sensation is grossly intact throughout. Finger to nose testing normal. Pronator drift normal. PSYCH: Normal mood, normal affect. SKIN: Warm, Dry, normal turgor, no rashes or lesions noted. Course - Re-evaluation Re-evalutation: 04/25/18 21:54 Patient presents with complaints of right-sided chest discomfort with associated right-sided neck pain and right shoulder pain. Patient states that she has been having 2 weeks of right-sided shoulder and trapezius pain worsened by range of motion with the shoulder but today after she closed her car door with the right arm she felt a stabbing pain in her right chest radiating up into her right neck, trapezius, periscapular region and down her right arm. She states that any movement of the arm worsens the pain. She was seen in urgent care, referred to the emergency department for further assessment. She denies any ongoing pleuritic discomfort. D-dimer is normal. No further evaluation for possible PE. Chest x-ray without evidence of pneumothorax, incidental possible cardiomegaly which unlikely to be related to today's presentation. EKG without ischemic changes. Troponin is normal. Patient has had her discomfort for greater than 8 hours, will not cycle troponins S clinical history does not appear correlated to ACS. Patient's symptoms seem much more consistent with a cervical nerve root impingement. She has a positive reproduction of pain with axial loading of the cervical spine when the head is tilted towards the right. She also has reproduction of pain with range of motion of the right shoulder. She really has gabapentin at home which I instructed her to take. I have advised physical therapy, NSAIDs. At this time will discharge with return precautions and follow-up recommendations. Verbal discharge instructions given a the bedside and opportunity for questions given. Medication warnings reviewed. Patient is in agreement with this plan and has verbalized understanding of return precautions and the need for primary care follow-up in the next 24-72 hours. - Vital Signs Vital signs: Temp Pulse Resp BP Pulse Ox 97.4 F 65 17 115/81 97 04/25/18 22:13 04/25/18 18:13 04/25/18 21:00 04/25/18 22:04 04/25/18 21:01 - Laboratory Result Diagrams: 04/25/18 20:05 04/25/18 20:05 Laboratory results interpreted by me: 04/25/18 20:05 Creatine Kinase 158 H - Diagnostic Test Radiology reviewed: Image reviewed, Reports reviewed Radiology results interpreted by me: 04/25/18 21:55 Chest x-ray: No acute infiltrate or pneumothorax - EKG Interpretation by Me Additional EKG results interpreted by me: 04/25/18 21:56 Atrially paced rhythm. Rate 64. No ST elevations or depressions. QTC 454. Discharge - Discharge Clinical Impression: Cervical nerve root impingement, Neck pain Chest pain Qualifiers: Chest pain type: unspecified Qualified Code(s): R07.9 - Chest pain, unspecified Condition: Good Disposition: HOME, SELF-CARE Additional Instructions: Your pain is related to impingement one of your cervical nerve roots and will take 6-8 weeks completely resolved. For your pain: Take ibuprofen 600 mg and acetaminophen 1000 mg every 6 hours together as needed for pain. If this does not control your pain you may take 15 mg of oral morphine every 4 hours as needed. Please be very careful about using the oral morphine and only use this for severe pain. In addition to this, purchased the product that is sold over- the-counter cold Aspercreme with lidocaine. Apply to the affected area per bottle instructions. You should also apply heat to the area regularly using an electric heating plant pad. Return to the emergency department immediately if you develop weakness, loss of sensation, chest pain, shortness of breath, have worsening of your symptoms, or any other symptoms that are worrisome to you. Your cardiac markers, EKG, and xray are otherwise normal today. Prescriptions: Morphine Sulfate [Morphine Ir 15 mg Tablet] 15 mg PO Q8HP PRN #6 tablet PRN Reason: Referrals: KILLIAN VALLES MD [Primary Care Provider] - Follow up in 3-5 days
[2018-04-25 22:11] VITALS: BP 115/81
== END 2018-04-25 22:14 | disposition home or self-care (01) ==
LOC: ER 17:54
DX: R07.9 Chest pain, unspecified (principal); M54.12 Radiculopathy, cervical region; M54.2 Cervicalgia; M25.511 Pain in right shoulder; I10 Essential (primary) hypertension; E78.5 Hyperlipidemia, unspecified
CPT/HCPCS: 93005; 99285; 96372; 36415; 82553; 82550; 85025; 80053; 84484; 85379; 71046; 93010; J1885; A9270

== ENCOUNTER 2018-06-14 22:19 | Emergency (ER) | payer MEDICARE, MEDICAID ==
--- NOTE | 2018-06-14 23:05 | ER Document Report ---
ED Medical Screen (RME) - General Chief Complaint: Cough Stated Complaint: COUGH Time Seen by Provider: 06/14/18 22:59 Notes: 52-year-old female with past medical history including bronchitis, CVA, pacemaker that reports worsening cough and shortness of breath. She states she was diagnosed 5 days ago with a chest x-ray with a pneumonia, placed on azithromycin and prednisone. Has been coughing since . Chest pain mainly with cough. Denies fevers. Denies smoking history. TRAVEL OUTSIDE OF THE [place] IN LAST 30 DAYS: No - Related Data Allergies/Adverse Reactions: amoxicillin trihydrate [From Augmentin] Allergy (Unknown, Verified 04/25/18 20:36) rash/hives Iodinated Contrast- Oral and IV Dye [IV Dye, Iodine Containing] Allergy (Unknown, Verified 04/25/18 20:36) breathing problems Potassium Clavulanate * [From Augmentin] Allergy (Unknown, Verified 04/25/18 20:36) rash/hives oxcarbazepine [From Trileptal] Allergy (Verified 04/25/18 20:36) Generalized rash morphine Adverse Reaction (Severe, Verified 04/25/18 22:15) Change in behavior Past Medical History - Past Medical History Cardiac Medical History: Reports: Hx Hypercholesterolemia, Hx Hypertension, Hx Heart Murmur - MVP Pulmonary Medical History: Reports: Hx Bronchitis, Hx Pneumonia Comment Only: Hx COPD - sleep apnea Neurological Medical History: Reports: Hx Cerebrovascular Accident Renal/ Medical History: Reports: Hx Ovarian Cysts - ovaries removed. Denies: Hx Peritoneal Dialysis GI Medical History: Reports: Hx Gastroesophageal Reflux Disease Musculoskeltal Medical History: Psychiatric Medical History: Reports: Hx Depression - MDD Infectious Medical History: Past Surgical History: Reports: Hx Cardiac Catheterization, Hx Cardiac Surgery - Pacemaker for sick sinus syndrome, Hx Section, Hx Hysterectomy, Hx Neurologic Surgery - Two procedures for right-sided trigeminal neuralgia, Hx Pacemaker - for SSS in July of 2012 - Immunizations Hx Diphtheria, Pertussis, Tetanus Vaccination: Yes Physical Exam - Vital signs Vitals: Temp Pulse Resp BP Pulse Ox 98.6 F 73 16 126/77 H 98 06/14/18 22:35 06/14/18 22:35 06/14/18 22:35 06/14/18 22:35 06/14/18 22:35 - Respiratory Respiratory status: No: Respiratory distress Breath sounds: Nonproductive cough - Congestion sounding nonproductive cough. No: Decreased air movement - Cardiovascular Rhythm: Regular. No: Tachycardia Heart sounds: Normal auscultation, S1 appreciated, S2 appreciated Course - Vital Signs Vital signs: Temp Pulse Resp BP Pulse Ox 98.6 F 73 16 126/77 H 98 06/14/18 22:35 06/14/18 22:35 06/14/18 22:35 06/14/18 22:35 06/14/18 22:35 Doctor's Discharge - Discharge Referrals: KILLIAN VALLES MD [Primary Care Provider] - Follow up as needed
[2018-06-14 23:46] LABS: ABSOLUTE BASOPHILS # (AUTO) 0.1 10^3/uL (0.0-0.2); ABSOLUTE LYMPHOCYTES (AUTO) 2.8 10^3/uL (0.5-4.7); ABSOLUTE MONOCYTES (AUTO) 0.8 10^3/uL (0.1-1.4); ABSOLUTE NEUT (AUTO) 10.1 10^3/uL (1.7-8.2); BASOPHILS % (AUTO) 0.5 % (0-2); EOSINOPHILS % (AUTO) 0.2 % (0-6); HEMATOCRIT 38.6 % (36.0-47.0); HEMOGLOBIN 12.7 g/dL (12.0-15.5); LYMPHOCYTES % (AUTO) 20.5 % (13-45); MEAN CORPUSCULAR HEMOGLOBIN 28.8 pg (27.0-33.4); MEAN CORPUSCULAR VOLUME 87 fl (80-97); MONOCYTES % (AUTO) 5.8 % (3-13); PLATELET COUNT 323 10^3/uL (150-450); RED BLOOD COUNT 4.43 10^6/uL (3.72-5.28); RED CELL DISTRIBUTION WIDTH 15.6 % (11.5-14.0); TOTAL CELLS COUNTED % (AUTO) 100 %; WHITE BLOOD COUNT 13.8 10^3/uL (4.0-10.5)
[2018-06-15] MEDS ORDERED: KETOROLAC TROMETHAMINE INJ/PF 30 MG/1 ML SDV IV ONE (00:01)
[2018-06-15 00:04] LABS: ANION GAP 8 (5-19); BLOOD UREA NITROGEN 15 mg/dL (7-20); CALCIUM 9.2 mg/dL (8.4-10.2); CARBON DIOXIDE 26 mmol/L (22-30); CHLORIDE 103 mmol/L (98-107); GLUCOSE 94 mg/dL (75-110); SODIUM 136.9 mmol/L (137-145)
--- NOTE | 2018-06-15 00:09 | RADIOLOGY REPORT (SQ) ---
EXAM DESCRIPTION: XR CHEST 2 VIEWS COMPLETED DATE/TME: 06/14/2018 23:03 CLINICAL HISTORY: Pneumonia COMPARISON: 04/25/2018 FINDINGS: Frontal and lateral views of the chest. Left-sided pacemaker. No consolidation, pneumothorax, or pleural effusion. No displaced rib fractures identified. Upper abdominal soft tissues are unremarkable. IMPRESSION: 1. No acute pneumonic process identified.
--- NOTE | 2018-06-15 01:25 | ER Document Report ---
ED General - General Chief Complaint: Cough Stated Complaint: COUGH Time Seen by Provider: 06/14/18 22:59 Notes: Patient is a 52-year-old female who presents with complaint of pain when she coughs or breathes or moves. Patient was diagnosed with pneumonia by her primary care doctor. She was placed on azithromycin and prednisone. She was al so placed on Tessalon Perles. Despite this she continues to cough and has pain when she coughs. She was having fevers. T-max at home was just over 101. She says she felt as if she may have had a fever today but did not check her temp. No coughing up of blood. No vomiting. No other complaints at this time. Pain is mainly in the right side. She took Motrin at home for pain. TRAVEL OUTSIDE OF THE [place] IN LAST 30 DAYS: No - Related Data Allergies/Adverse Reactions: amoxicillin trihydrate [From Augmentin] Allergy (Unknown, Verified 06/14/18 23:15) rash/hives Iodinated Contrast- Oral and IV Dye [IV Dye, Iodine Containing] Allergy (Unknown, Verified 06/14/18 23:15) breathing problems Potassium Clavulanate * [From Augmentin] Allergy (Unknown, Verified 06/14/18 23:15) rash/hives oxcarbazepine [From Trileptal] Allergy (Verified 06/14/18 23:15) Generalized rash morphine Adverse Reaction (Severe, Verified 06/14/18 23:15) Change in behavior Past Medical History - Social History Smoking Status: Unknown if Ever Smoked Frequency of alcohol use: None Drug Abuse: None Family History: Reviewed & Not Pertinent Patient has suicidal ideation: No Patient has homicidal ideation: No - Past Medical History Cardiac Medical History: Reports: Hx Hypercholesterolemia, Hx Hypertension, Hx Heart Murmur - MVP Pulmonary Medical History: Reports: Hx Bronchitis, Hx Pneumonia Comment Only: Hx COPD - sleep apnea Neurological Medical History: Reports: Hx Cerebrovascular Accident Renal/ Medical History: Reports: Hx Ovarian Cysts - ovaries removed. Denies: Hx Peritoneal Dialysis GI Medical History: Reports: Hx Gastroesophageal Reflux Disease Musculoskeletal Medical History: Psychiatric Medical History: Reports: Hx Depression - MDD Infectious Medical History: Past Surgical History: Reports: Hx Cardiac Catheterization, Hx Cardiac Surgery - Pacemaker for sick sinus syndrome, Hx Section, Hx Hysterectomy, Hx Neurologic Surgery - Two procedures for right-sided trigeminal neuralgia, Hx Pacemaker - for SSS in July of 2012 - Immunizations Hx Diphtheria, Pertussis, Tetanus Vaccination: Yes Hx Pneumococcal Vaccination: 06/03/10 Review of Systems - Review of Systems Notes: My Normal Review Basic REVIEW OF SYSTEMS: CONSTITUTIONAL : Denies fever, chills, or sweats. Denies recent illness. EENT: Congestion and postnasal drip. CARDIOVASCULAR: Pain over right rib cage. RESPIRATORY: Denies cough, cold, or chest congestion. Denies shortness of breath, difficulty breathing, or wheezing. GASTROINTESTINAL: Denies abdominal pain. Denies nausea, vomiting, or diarrhea. GENITOURINARY: Denies difficulty urinating, painful urination, burning, frequency, or blood in urine. MUSCULOSKELETAL: Denies neck or back pain or joint pain or swelling. NEUROLOGICAL: Denies altered mental status or loss of consciousness. Denies headache. Denies weakness or paralysis or loss of use of either side. Denies problems with gait or speech. Denies sensory or motor loss. ALL OTHER SYSTEMS REVIEWED AND NEGATIVE. Physical Exam - Vital signs Vitals: Temp Pulse Resp BP Pulse Ox 98.6 F 73 16 126/77 H 98 06/14/18 22:35 06/14/18 22:35 06/14/18 22:35 06/14/18 22:35 06/14/18 22:35 - Notes Notes: General Appearance: Well nourished, alert, cooperative, no acute distress, alert obvious discomfort. Vitals: reviewed, See vital signs table. Head: no swelling or tenderness to the head Eyes: PERRL, EOMI, Conjuctiva clear Lungs: No wheezing, No rales, No rhonci, No accessory muscle use, good air exchange bilaterally. Heart: Normal rate, Regular rythm, No murmur, no rub Chest wall: Pain to palpation over the right rib cage is worse over the crease on the inferior portion of the right breast. No redness or swelling along the rib cage. No rash. Abdomen: Normal BS, soft, No rigidity, No abdominal tenderness, No guarding, no rebound, no abdominal masses, no organomegaly Extremities: strength 5/5 in all extremities, good pulses in all extremities, no swelling or tenderness in the extremities, no edema. Skin: warm, dry, appropriate color, no rash Neuro: speech clear, oriented x 3, normal affect, responds appropriately to questions. Course - Re-evaluation Re-evalutation: 06/15/18 01:33 Chest x-ray shows no evidence of recurrent pneumonia. Lung garcia are clear. She does have some pain when she coughs and she pain is also reproducible palpation. I do not suspect PE as her pain is easily reproducible palpation, she is not tachycardic, and she has had recent fevers consistent with her recent diagnosed pneumonia as well as pleurisy. I gave her a dose of Toradol. This only helped a little bit. She does not any opiate medications and has some allergy to morphine. She request something different for cough. She has a lot of postnasal drip and therefore placed on guaifenesin and phenylephrine. This may or may not be beneficial however I told her it is worth a try to see if it helps reduce her cough some so that her pain is less. I will write a prescription for Toradol. I encouraged her return to ER if she has difficulty breathing, fevers, or if she feels that she is worsening. Patient agrees with plan and will be discharged home. Dictation of this chart was performed using voice recognition software; therefore, there may be some unintended grammatical errors. - Vital Signs Vital signs: Temp Pulse Resp BP Pulse Ox 98.6 F 73 16 126/77 H 98 06/14/18 22:35 06/14/18 22:35 06/14/18 22:35 06/14/18 22:35 06/14/18 22:35 - Laboratory Result Diagrams: 06/14/18 23:32 06/14/18 23:32 Laboratory results interpreted by me: 06/14/18 06/14/18 23:32 23:32 WBC 13.8 H RDW 15.6 H Absolute Neutrophils 10.1 H Sodium 136.9 L Discharge - Discharge Clinical Impression: Pleurisy Chest pain Qualifiers: Chest pain type: pleurodynia Qualified Code(s): R07.81 - Pleurodynia Condition: Good Disposition: HOME, SELF-CARE Additional Instructions: Please take the toradol as prescribed for the pain. Do not take other NSAID medicaitons such as Aspirin, Motrin, Ibuprofen, Aleve, or Advil when taking the Toradol. It is okay to take Tylenol. I have prescribed a different cough medicine. Hopefully this will help some with the cough. Please return to the ER if you have fevers, difficulty breathing, coughing of blood, or if you feel that you are worsening. Follow up with your doctor in 2-3 days for reevaluation Prescriptions: Guaifen/Pseudoephed/Acetaminop [Tylenol Sinus Caplet] 1 each PO Q6 #30 tablet
[2018-06-15 02:06] VITALS: BP 108/72
--- NOTE | 2018-06-15 08:53 | EKG REPORT ---
SEVERITY:- ABNORMAL ECG - ATRIAL-PACED RHYTHM LEFT VENTRICULAR HYPERTROPHY : Confirmed by: Malvin Gilman MD 15-Jun-2018 08:53:07
== END 2018-06-15 02:06 | disposition home or self-care (01) ==
LOC: ER 22:19
DX: R09.1 Pleurisy (principal); R07.81 Pleurodynia; R05 Cough; R50.9 Fever, unspecified; I10 Essential (primary) hypertension; J44.9 Chronic obstructive pulmonary disease, unspecified; R09.81 Nasal congestion; R09.82 Postnasal drip
CPT/HCPCS: 93005; 99284; 36415; 85025; 80048; 84484; 71046; 93010; J1885

== ENCOUNTER → 2018-07-03 | Outpatient (CLI) | payer MEDICARE, MEDICAID ==
[2018-07-03 09:32] LABS: ALANINE AMINOTRANSFERASE 24 U/L (9-52); ALBUMIN 4.7 g/dL (3.5-5.0); ALKALINE PHOSPHATASE 65 U/L (38-126); ANION GAP 8 (5-19); ASPARTATE AMINO TRANSFERASE 26 U/L (14-36); BILIRUBIN,DIRECT 0.3 mg/dL (0.0-0.4); BILIRUBIN,TOTAL 0.7 mg/dL (0.2-1.3); BLOOD UREA NITROGEN 11 mg/dL (7-20); CALCIUM 10.3 mg/dL (8.4-10.2); CARBON DIOXIDE 30 mmol/L (22-30); CHLORIDE 104 mmol/L (98-107); CHOLESTEROL 192.48 mg/dL (0-200); GLUCOSE 95 mg/dL (75-110); POTASSIUM 3.8 mmol/L (3.6-5.0); SODIUM 142.4 mmol/L (137-145); TOTAL PROTEIN 8.2 g/dL (6.3-8.2); TRIGLYCERIDES 143 mg/dL (<150)
[2018-07-03 09:42] LABS: DIRECT LDL 79 mg/dL (<100)
== END ==
LOC: LAB 08:55
PROVIDERS: ATTEND Internal Medicine Cardiovascular Disease
DX: E78.00 Pure hypercholesterolemia, unspecified (principal); I48.0 Paroxysmal atrial fibrillation; Z79.899 Other long term (current) drug therapy
CPT/HCPCS: 36415; 80048; 80061; 80076

== ENCOUNTER → 2018-07-04 | Outpatient (CLI) | payer MEDICARE, MEDICAID ==
[2018-07-04 11:58] LABS: HEMATOCRIT 37.1 % (36.0-47.0); HEMOGLOBIN 12.7 g/dL (12.0-15.5); MEAN CORPUSCULAR HEMOGLOBIN 29.7 pg (27.0-33.4); MEAN CORPUSCULAR HGB CONC 34.2 g/dL (32.0-36.0); MEAN CORPUSCULAR VOLUME 87 fl (80-97); PLATELET COUNT 254 10^3/uL (150-450); RED BLOOD COUNT 4.27 10^6/uL (3.72-5.28); RED CELL DISTRIBUTION WIDTH 15.3 % (11.5-14.0); WHITE BLOOD COUNT 8.3 10^3/uL (4.0-10.5)
[2018-07-04 12:20] LABS: ALANINE AMINOTRANSFERASE 33 U/L (9-52); ALBUMIN 4.6 g/dL (3.5-5.0); ALKALINE PHOSPHATASE 60 U/L (38-126); ASPARTATE AMINO TRANSFERASE 25 U/L (14-36); BILIRUBIN,DIRECT 0.1 mg/dL (0.0-0.4); BILIRUBIN,TOTAL 0.6 mg/dL (0.2-1.3); CREATINE KINASE 129 U/L (30-135); POTASSIUM 4.5 mmol/L (3.6-5.0); TOTAL PROTEIN 7.4 g/dL (6.3-8.2)
== END ==
LOC: LAB 11:16
PROVIDERS: ATTEND Internal Medicine Cardiovascular Disease
DX: R25.2 Cramp and spasm (principal); R06.02 Shortness of breath; I48.0 Paroxysmal atrial fibrillation; R53.83 Other fatigue; Z79.899 Other long term (current) drug therapy
CPT/HCPCS: 36415; 80076; 82306; 82550; 83735; 84132; 84443; 85027

== ENCOUNTER → 2018-08-26 | Outpatient (CLI) | payer MEDICARE, MEDICAID ==
[~2018-08-26] MED LIST: REGADENOSON INJ 0.4 MG/5 ML DISP.SYRIN IV ONE
--- NOTE | 2018-08-26 14:14 | RADIOLOGY REPORT ---
STRESS TEST REPORT PATIENT NAME: LIGIA ADLER ROOM#: DATE OF SERVICE: 08/26/2018 AGE: 52Y ORDER#: [id number] REFERRING MD: KILLIAN VALLES M.D. INDICATION: Assessment of chest pains, history of elevated troponin-I with chest pain. PROCEDURE PERFORMED: Rest/stress isotope Cardiolite SPECT imaging with IV Lexiscan stress and gated SPECT imaging. REPORT CLINICAL HISTORY: This 52-year-old black female with no known coronary artery disease, has coronary risk factors of family history of premature MD, and hypercholesterolemia. Current symptomatology includes chest pains. SUMMARY OF FINDINGS/IMPRESSION: The patient received IV Lexiscan 0.4 mg infused over 10 seconds. The resting heart rate was 68 beats per minute and increased to 97 beats per minute at end infusion. The resting blood pressure was 106/64 and increased to 138/62 at end infusion. The patient had symptoms of lightheadedness, which was transient. There was no chest pain or shortness of breath. The resting 12-lead EKG showed normal sinus rhythm with normal ST segments. At end infusion, no ST changes were seen. Myocardial perfusion imaging was performed at rest, 60 minutes following the injection of 13.81 mCi of Cardiolite. 10 seconds after the IV Lexiscan, the patient was injected with 44.8 mCi of Cardiolite and flushed. Gated stress post stress imaging was performed one hour after stress injection. FINDINGS: The overall quality of the study is poor. This is due to the patient's obesity of 219 pounds, significant breast attenuation was seen, attenuation correction was attempted. The left ventricular cavity is noted to be normal in size on both the rest and stress studies. There is no evidence of transient ischemic dilatation of the left ventricle. The TID ratio was 0.98 and normal. SPECT images showed no evidence of IV Lexiscan-induced myocardial ischemia and no fixed perfusion defect. The gated SPECT imaging showed normal motion contraction in all LV segments. The left ventricular ejection fraction was 60%. IMPRESSION: MYOCARDIAL PERFUSION IMAGING IS NORMAL. THERE IS NO INTRAVENOUS LEXISCAN-INDUCED REVERSIBLE ISCHEMIA. NO FIXED PERFUSION DEFECT. OVERALL LEFT VENTRICULAR SIZE AND FUNCTION WAS NORMAL AT EF 60% AND THERE WAS NO REGIONAL WALL MOTION ABNORMALITY. NO PRIOR STUDIES FOR COMPARISON. INTERPRETING PHYSICIAN: KILLIAN VALLES M.D. /: [id number] TT: 1356 ID: [id number] /: [id number] TD: [id number] JOB: [id number] cc:Ajit HUANG M.D. > [facility]AN[facility]
== END ==
LOC: RAD 06:58
PROVIDERS: ATTEND Internal Medicine Cardiovascular Disease
DX: R07.89 Other chest pain (principal); Z82.49 Family history of ischemic heart disease and other diseases of the circulatory system
CPT/HCPCS: 93017; 78452; A9500; J2785; Q9969

== ENCOUNTER → 2018-09-01 | Outpatient (CLI) | payer OTHER ==
[2018-09-01 15:26] LABS: ANION GAP 5 (5-19); BLOOD UREA NITROGEN 16 mg/dL (7-20); CALCIUM 9.7 mg/dL (8.4-10.2); CARBON DIOXIDE 30 mmol/L (22-30); CHLORIDE 106 mmol/L (98-107); CREATINE KINASE 235 U/L (30-135); GLUCOSE 85 mg/dL (75-110); POTASSIUM 3.7 mmol/L (3.6-5.0); SODIUM 140.7 mmol/L (137-145)
== END ==
LOC: LAB 14:39
PROVIDERS: ATTEND Internal Medicine Cardiovascular Disease
DX: R25.2 Cramp and spasm (principal)
CPT/HCPCS: 36415; 80048; 82550; 83735

== ENCOUNTER → 2018-09-15 | Outpatient (CLI) | payer MEDICARE, MEDICAID ==
[2018-09-15 12:18] LABS: ALANINE AMINOTRANSFERASE 35 U/L (9-52); ALKALINE PHOSPHATASE 49 U/L (38-126); ASPARTATE AMINO TRANSFERASE 33 U/L (14-36); BILIRUBIN,DIRECT 0.2 mg/dL (0.0-0.4); BILIRUBIN,TOTAL 0.5 mg/dL (0.2-1.3); CHOLESTEROL 227.26 mg/dL (0-200); CREATINE KINASE 346 U/L (30-135); TOTAL PROTEIN 7.1 g/dL (6.3-8.2); TRIGLYCERIDES 47 mg/dL (<150)
[2018-09-15 12:29] LABS: DIRECT LDL 118 mg/dL (<100)
== END ==
LOC: LAB 11:40
PROVIDERS: ATTEND Internal Medicine Cardiovascular Disease
DX: E78.00 Pure hypercholesterolemia, unspecified (principal); R74.8 Abnormal levels of other serum enzymes; Z79.899 Other long term (current) drug therapy
CPT/HCPCS: 36415; 80061; 80076; 82550

== ENCOUNTER 2018-12-23 11:37 | Emergency (ER) | payer MEDICARE, MEDICAID ==
[2018-12-23 12:43] LABS: INTERNATIONAL RATION (INR) 0.95
[2018-12-23 12:44] LABS: PARTIAL THROMBOPLASTIN TIME 27.4 SEC (23.5-35.8)
[2018-12-23 12:45] LABS: ABSOLUTE EOSINOPHILS # (AUTO) 0.1 10^3/uL (0.0-0.6); ABSOLUTE MONOCYTES (AUTO) 0.6 10^3/uL (0.1-1.4); ABSOLUTE NEUT (AUTO) 4.7 10^3/uL (1.7-8.2); BASOPHILS % (AUTO) 0.3 % (0-2); EOSINOPHILS % (AUTO) 1.9 % (0-6); HEMATOCRIT 41.1 % (36.0-47.0); HEMOGLOBIN 13.7 g/dL (12.0-15.5); LYMPHOCYTES % (AUTO) 27.1 % (13-45); MEAN CORPUSCULAR HEMOGLOBIN 28.9 pg (27.0-33.4); MEAN CORPUSCULAR HGB CONC 33.3 g/dL (32.0-36.0); MEAN CORPUSCULAR VOLUME 87 fl (80-97); MONOCYTES % (AUTO) 7.8 % (3-13); PLATELET COUNT 243 10^3/uL (150-450); PROTHROMBIN TIME 12.7 SEC (11.4-15.4); RED BLOOD COUNT 4.74 10^6/uL (3.72-5.28); RED CELL DISTRIBUTION WIDTH 13.5 % (11.5-14.0); SEGMENTED NEUTROPHILS % (AUTO) 62.9 % (42-78); TOTAL CELLS COUNTED % (AUTO) 100 %; WHITE BLOOD COUNT 7.5 10^3/uL (4.0-10.5)
[2018-12-23 12:47] LABS: APPEARANCE,URINE CLEAR; BILIRUBIN,URINE NEGATIVE (NEGATIVE); COLOR,URINE YELLOW; GLUCOSE, URINE NEGATIVE (NEGATIVE); KETONES,URINE NEGATIVE (NEGATIVE); LEUKOCYTE ESTERASE,URINE NEGATIVE (NEGATIVE); NITRITE,URINE NEGATIVE (NEGATIVE); PROTEIN,URINE NEGATIVE (NEGATIVE); UROBILINOGEN,URINE NEGATIVE mg/dL (<2.0)
[2018-12-23 13:02] LABS: ALANINE AMINOTRANSFERASE 26 U/L (9-52); ALBUMIN 4.5 g/dL (3.5-5.0); ALKALINE PHOSPHATASE 54 U/L (38-126); ANION GAP 8 (5-19); ASPARTATE AMINO TRANSFERASE 29 U/L (14-36); BILIRUBIN,DIRECT 0.3 mg/dL (0.0-0.4); BILIRUBIN,TOTAL 0.6 mg/dL (0.2-1.3); BLOOD UREA NITROGEN 20 mg/dL (7-20); CALCIUM 9.8 mg/dL (8.4-10.2); CARBON DIOXIDE 27 mmol/L (22-30); CHLORIDE 106 mmol/L (98-107); CREATINE KINASE 276 U/L (30-135); GLUCOSE 85 mg/dL (75-110); TOTAL PROTEIN 7.7 g/dL (6.3-8.2)
[2018-12-23 13:14] LABS: CREATINE KINASE MB 1.47 ng/mL (<4.55); TROPONIN I 0.013 ng/mL
--- NOTE | 2018-12-23 13:39 | EKG REPORT ---
SEVERITY:- ABNORMAL ECG - ATRIAL-PACED RHYTHM LEFT VENTRICULAR HYPERTROPHY : Confirmed by: John Palomino 23-Dec-2018 13:38:53
--- NOTE | 2018-12-23 16:20 | RADIOLOGY REPORT (SQ) ---
EXAM DESCRIPTION: CHEST SINGLE VIEW COMPLETED DATE/TIME: 12/23/2018 1:20 pm REASON FOR STUDY: altered mental status, headachePneumonia, shortness of breath chest pain COMPARISON: 06/14/2018 NUMBER OF VIEWS: One view. TECHNIQUE: Single frontal radiographic view of the chest acquired. LIMITATIONS: Low lung volumes. FINDINGS: LUNGS AND PLEURA: No opacities, masses or pneumothorax. No pleural effusion. MEDIASTINUM AND HILAR STRUCTURES: No masses. Contour normal. HEART AND VASCULAR STRUCTURES: Heart normal in size. Normal vasculature. BONES: No acute findings. HARDWARE: Battery pack and leads remain in place. OTHER: No other significant finding. IMPRESSION: NO SIGNIFICANT RADIOGRAPHIC FINDING IN THE CHEST. TECHNICAL DOCUMENTATION: JOB ID: [id number] [employer]- All Rights Reserved Reading location - IP/workstation name: [email or web address]
[2018-12-23 18:35] VITALS: BP 115/73
--- NOTE | 2018-12-23 19:12 | ER Document Report ---
Entered by LOULOU MCMILLAN SCRIBE 12/23/18 1256 Acting as scribe for:AIXA PAREDES, ED General <ANNIE SHARMA - Last Filed: 12/23/18 16:31> - General TRAVEL OUTSIDE OF THE [place] IN LAST 30 DAYS: No <AIXA PAREDES - Last Filed: 12/23/18 19:12> - General Chief Complaint: Weakness Stated Complaint: WEAKNESS Time Seen by Provider: 12/23/18 11:57 Primary Care Provider: Bonnie Dickerson [Outside] - Follow up as needed [facility] [Outside] - Follow up as needed KILLIAN VALLES MD [Primary Care Provider] - Follow up as needed Notes: Patient is a 53-year-old female with history of a stroke in 2016 presenting to the emergency department complaining of a headache with associated left-sided chest pain. Patient states that she began experiencing shoulder pain last night, that radiated into her right side, that she has been feeling rather off balance. Patient states that she has been experiencing forehead pain specifically, blurred vision (states that she has had this for months) and has been expe riencing shortness of breath. Patient states that she has been depressed lately because of things going on with her daughter. Patient states that after her stroke in 2016 she did have right-sided deficit, with balance problems. Patient states that she takes several medications at the moment. Patient denies experiencing any nausea, vomiting, diarrhea, focal deficit, syncope, speech impediment/problem. (LOULOU MCMILLAN) Patient is a 53-year-old female with history of a stroke in 2016 presenting to the emergency department complaining of a headache with associated left-sided chest pain. Patient states that she began experiencing shoulder pain last night, that radiated into her right side, that she has been feeling rather off balance. Patient states that she has been experiencing forehead pain specifically, blurred vision (states that she has had this for months) and has been experiencing shortness of breath. Patient states that she has been depressed lately because of things going on with her daughter. Patient states that after her stroke in 2016 she did have right-sided deficit, with balance problems. Patient states that she takes several medications at the moment. Patient denies experiencing any nausea, vomiting, diarrhea, focal deficit, syncope, speech impediment/problem. Last time she felt normal and did not feel like she was off balance was last evening. (AIXA PAREDES) - Related Data Allergies/Adverse Reactions: amoxicillin trihydrate [From Augmentin] Allergy (Unknown, Verified 12/23/18 11:40) rash/hives Iodinated Contrast- Oral and IV Dye [IV Dye, Iodine Containing] Allergy (Unknown, Verified 12/23/18 11:40) breathing problems Potassium Clavulanate * [From Augmentin] Allergy (Unknown, Verified 12/23/18 11:40) rash/hives oxcarbazepine [From Trileptal] Allergy (Verified 12/23/18 11:40) Generalized rash morphine Adverse Reaction (Severe, Verified 12/23/18 11:40) Change in behavior Past Medical History - General Information source: Patient - Social History Smoking Status: Current Some Day Smoker Cigarette use (# per day): Yes Chew tobacco use (# tins/day): No Frequency of alcohol use: Occasional Drug Abuse: None Family History: Reviewed & Not Pertinent Patient has suicidal ideation: No Patient has homicidal ideation: No - Past Medical History Cardiac Medical History: Reports: Hx Hypercholesterolemia, Hx Hypertension, Hx Heart Murmur - MVP Pulmonary Medical History: Reports: Hx Bronchitis, Hx Pneumonia, Hx Sleep Apnea Comment Only: Hx COPD - sleep apnea Neurological Medical History: Reports: Hx Cerebrovascular Accident Renal/ Medical History: Reports: Hx Ovarian Cysts - ovaries removed GI Medical History: Reports: Hx Gastroesophageal Reflux Disease Musculoskeletal Medical History: Psychiatric Medical History: Reports: Hx Depression - MDD Infectious Medical History: Past Surgical History: Reports: Hx Cardiac Catheterization, Hx Cardiac Surgery - Pacemaker for sick sinus syndrome, Hx Section, Hx Hysterectomy, Hx Neurologic Surgery - Two procedures for right-sided trigeminal neuralgia, Hx Pacemaker - for SSS in July of 2012 - Immunizations Hx Diphtheria, Pertussis, Tetanus Vaccination: Yes Hx Pneumococcal Vaccination: 06/03/10 <AIXA PAREDES - Last Filed: 12/23/18 19:12> Review of Systems - Review of Systems Constitutional: See HPI - Fatigue EENT: See HPI, Blurred vision - For months Cardiovascular: See HPI, Chest pain Respiratory: See HPI, Short of breath Gastrointestinal: See HPI. denies: Diarrhea, Nausea, Vomiting Genitourinary: No symptoms reported Female Genitourinary: No symptoms reported Musculoskeletal: No symptoms reported Skin: No symptoms reported Hematologic/Lymphatic: No symptoms reported Neurological/Psychological: See HPI, Depression, Headaches. denies: Other - Syncope -: Yes All other systems reviewed and negative <AIXA PAREDES - Last Filed: 12/23/18 19:12> Physical Exam <AIXA PAREDES - Last Filed: 12/23/18 19:12> - Vital signs Vitals: Temp Pulse Resp BP Pulse Ox 97.4 F 72 16 119/78 97 12/23/18 11:43 12/23/18 11:43 12/23/18 11:43 12/23/18 11:43 12/23/18 11:43 - Notes Notes: PHYSICAL EXAM GENERAL: Awake, slow response, follows commands, depressed, no acute distress. HEAD: Normocephalic, atraumatic. EYES: Pupils equal, round, and reactive to light. Extraocular movements intact. ENT: Oral mucosa moist, tongue midline. NECK: Full range of motion. Supple. Trachea midline. LUNGS: Clear to auscultation bilaterally, no wheezes, rales, or rhonchi. No respiratory distress. HEART: Regular rate and rhythm. No murmurs, gallops, or rubs. ABDOMEN: Soft, non-tender. Non-distended. Bowel sounds present in all 4 quad rants. No guarding, rigidity, or rebound. EXTREMITIES: Moves all 4 extremities spontaneously. No edema, radial and dorsalis pedis pulses 2/4 bilaterally. No cyanosis. NEUROLOGICAL: Alert and oriented x3. Slightly tongue-tied positive vvpcvm-ab-qafb test. Positive dfuw-xr-qoeq test. Biceps and patellar DTRs 2+ bilaterally. No focal deficit. PSYCH: Slow affect, slow response normal mood. SKIN: Warm, dry, normal turgor. No rashes or lesions noted. (LOULOU MCMILLAN) PHYSICAL EXAM GENERAL: Awake, slow to respond but follows commands, depressed, no acute distress. HEAD: Normocephalic, atraumatic. EYES: Pupils equal, round, and reactive to light. Extraocular movements intact. ENT: Oral mucosa moist, tongue midline. NECK: Full range of motion. Supple. Trachea midline. LUNGS: Clear to auscultation bilaterally, no wheezes, rales, or rhonchi. No respiratory distress. HEART: Regular rate and rhythm. No murmurs, gallops, or rubs. ABDOMEN: Soft, non-tender. Non-distended. Bowel sounds present in all 4 quadrants. No guarding, rigidity, or rebound. EXTREMITIES: Moves all 4 extremities spontaneously. No edema, radial and dorsalis pedis pulses 2/4 bilaterally. No cyanosis. NEUROLOGICAL: Alert and oriented x3. Slightly tongue-tied but tongue is midline, ribt-ay-bvcv and jtwkfq-lx-jltc test intact. Biceps and patellar DTRs 2+ bilaterally. No focal deficit. PSYCH: Slow affect, slow response normal mood. SKIN: Warm, dry, normal turgor. No rashes or lesions noted. (AIXA PAREDES) Course - Laboratory Result Diagrams: 12/23/18 12:25 12/23/18 12:25 <ANNIE SHARMA - Last Filed: 12/23/18 16:31> - Laboratory Result Diagrams: 12/23/18 12:25 12/23/18 12:25 <AIXA PAREDES - Last Filed: 12/23/18 19:12> - Re-evaluation Re-evalutation: 12/23/18 18:02 CBC unremarkable, coags normal, CMP grossly unremarkable, troponin negative x2 3 hours apart, EKG nonischemic, chest x-ray unremarkable. Patient was quite tearful when asked how she was feeling at the end of the interview and she has a history of depression, so I did ask behavioral health to evaluate her and the patient's mother provided additional information that was quite helpful that included that the patient has been very busy in the past 3 to 4 days and has barely slept all over the past 3 to 4 days. Mother is not concerned that the patient may be having a worsening of her behavioral health. Speaking with the patient and the mother patient now admits that she wakes up at 5:30 every morning and does not go to sleep until late at night, gets very few hours of sleep every night. Feels very tired. Currently I am just waiting on CT scan of her head. Since sleeping the patient is much more awake and alert, feeling more positive and less fatigued. So long as the CT scan of head comes back negative for any acute process patient will be discharged to home. 12/23/18 18:25 CT scan of the head is negative for any acute process. Patient will be discharged to home. 12/23/18 18:32 Patient counseled on appropriate sleep hygiene and setting alarms to ensure she budgets enough time to get at least 8 hours of sleep every night. (AIXA PAREDES) - Vital Signs Vital signs: Temp Pulse Resp BP Pulse Ox 97.4 F 62 18 115/73 96 12/23/18 11:43 12/23/18 15:00 12/23/18 18:01 12/23/18 18:01 12/23/18 18:01 - Laboratory Laboratory results interpreted by me: 12/23/18 12/23/18 12:25 12:25 Creatine Kinase 276 H Urine Ascorbic Acid 40 H - EKG Interpretation by Me Additional EKG results interpreted by me: 12/23/18 18:09 EKG shows an atrially paced rhythm at a rate of 60, left axis deviation, normal QRS, no ST segment elevations or depressions, there is T wave flattening in lead III per my interpretation. (AIXA PAREDES) Discharge <ANNIE SHARMA - Last Filed: 12/23/18 16:31> <AIXA PAREDES - Last Filed: 12/23/18 19:12> - Discharge Clinical Impression: Tearfulness, Poor sleep, Chest pain in adult Depression Qualifiers: Depression Type: unspecified Qualified Code(s): F32.9 - Major depressive disorder, single episode, unspecified Condition: Stable Disposition: HOME, SELF-CARE Additional Instructions: You have been evaluated by both medical and behavioral health providers while in the emergency department. You have been cleared from both acute medical and psychiatric services. You presented flat at first, depressed and then with tearf ul affect. Your mother noted poor sleep for the past week or longer since you have been on the go and helping others thus neglecting eating patterns. Sleep and nutrition are two of the most important foundations of both physical and mental health. You should get some sleep and rest to allow your body to recharge. Follow up with outpatient mental health provider for medication management and request therapy as it may also be helpful. Fatigue (poor sleep) Fatigue can be caused by many medical and emotional problems. Fatigue can be an early symptom of infection, or can be caused by chronic infection. It can be a symptom of metabolic diseases like diabetes, hypothyroidism, or anemia. It can result from sleep problems such as sleep apnea. Fatigue can be a symptom of depression. Overuse of alcohol or caffeine can cause fatigue. Many drugs can cause fatigue, either as a side effect or when withdrawing from the drug. Until the evaluation is complete, try to keep up your normal activities. Get regular sleep hours, but avoid oversleeping. Try to get regular exercise. Eliminate alcohol, caffeine, and any unnecessary drugs, herbs, or medicines (discuss any changes in prescription medicines with your doctor). Contact the doctor if there is any change for the worse. Depression Your evaluation reveals that you have mental depression. While symptoms may be vague, they often include disturbance of sleep, fatigue, loss of appetite, and general loss of interest in life. While depression may be a side effect of drugs, or a reaction to a major change in your life, many cases have no known cause. If depression is acute, and related to a major loss in your life, you can expect it to clear completely with time. If you have been depressed a long time, are prone to repeated bouts of depression or low mood, or have been thinki ng of suicide, get help. Depression can be treated with anti-depressant medication and counselling. Long-term depression will often take a few weeks to clear, even with appropriate medication. Follow-up care is important. Contact your physician, the hospital emergency center, crisis line, or your counsellor if you are losing control or having self-destructive thoughts. Follow-Up Plan: You should follow up with [facility] ([facility]), your already established behavioral health provider, for continued medication management. If your symptoms persist or worsen contact your physician immediately, utilize mobile crisis or return to the emergency department. Chest Pain of Unclear Cause The exact cause of your chest pain isn't clear. Fortunately, there is no evidence of a dangerous medical condition. Further testing may be required to find the source of the pain. Most often, we find that this pain is coming from the chest wall -- the muscles or rib joints in the chest. But chest pain can come from the lung and lung lining, the esophagus, the heart valves or heart lining, and even the stomach or gallbladder. Rest. Eat lightly until the pain is gone. We may prescribe medicine for pain and inflammation. You should call the physician immediately if the pain radiates to the shoulder, jaw or arms; if you start to run a fever or develop a cough; or if you develop shortness of breath, or other new or alarming symptoms. Referrals: KILLIAN VALLES MD [Primary Care Provider] - Follow up as needed [facility] [Outside] - Follow up as needed [facility] [Outside] - Follow up as needed I personally performed the services described in the documentation, reviewed and edited the documentation which was dictated to the scribe in my presence, and it accurately records my words and actions.
--- NOTE | 2018-12-24 07:54 | RADIOLOGY REPORT (SQ) ---
EXAM DESCRIPTION: CT HEAD WITHOUT COMPLETED DATE/TIME: 12/23/2018 12:54 pm REASON FOR STUDY: altered mental status, headacheAltered level of consciousness, headache COMPARISON: 01/20/2017 TECHNIQUE: Axial images acquired through the brain without intravenous contrast. Images reviewed wi th bone, brain and subdural windows. Additional sagittal and coronal reconstructions were generated. Images stored on PACS. All CT scanners at this facility use dose modulation, iterative reconstruction, and/or weight based d osing when appropriate to reduce radiation dose to as low as reasonably achievable (ALARA). [facility]: Dose Right [facility]: CareDose [facility]: Dose Right [facility]: Teradose 4D [facility]: eCaring RADIATION DOSE: CT Rad equipment meets quality standard of care and radiation dose reduction techniq ues were employed. CTDIvol: 53.2 mGy. DLP: 964 mGy-cm. mGy. LIMITATIONS: None. FINDINGS: VENTRICLES: Normal size and contour. CEREBRUM: No masses. No hemorrhage. No midline shift. No evidence for acute infarction. Normal gra y/white matter differentiation. No areas of low density in the white matter. CEREBELLUM: No masses. No hemorrhage. No alteration of density. No evidence for acute infarction. EXTRAAXIAL SPACES: No fluid collections. No masses. ORBITS AND GLOBE: No intra- or extraconal masses. Normal contour of globe without masses. CALVARIUM: No fracture. PARANASAL SINUSES: There is a retention cyst or polyp in the right maxillary sinus this is grossly un changed. SOFT TISSUES: No mass or hematoma. OTHER: No other significant finding. IMPRESSION: NORMAL BRAIN CT WITHOUT CONTRAST. EVIDENCE OF ACUTE STROKE: NO. COMMENT: Quality ID # [id number]: Final reports with documentation of one or more dose reduction techniques (e.g., Automated exposure control, adjustment of the mA and/or kV according to patient size, use of iterative reconstruction technique) TECHNICAL DOCUMENTATION: JOB ID: [id number] [employer]- All Rights Reserved Reading location - IP/workstation name: [email or web address]
== END 2018-12-23 18:35 | disposition home or self-care (01) ==
LOC: ER 11:37
DX: F32.9 Major depressive disorder, single episode, unspecified (principal); R51 Headache; H53.8 Other visual disturbances; R07.9 Chest pain, unspecified; R06.02 Shortness of breath; R53.83 Other fatigue; M25.519 Pain in unspecified shoulder; F17.210 Nicotine dependence, cigarettes, uncomplicated; I10 Essential (primary) hypertension; I49.5 Sick sinus syndrome; Z95.0 Presence of cardiac pacemaker; Z88.0 Allergy status to penicillin; Z91.041 Radiographic dye allergy status; Z88.8 Allergy status to other drugs, medicaments and biological substances
CPT/HCPCS: 36415; 70450; 71045; 80053; 81001; 82550; 82553; 84484; 85025; 85610; 85730; 93005; 93010; 99284

== ENCOUNTER 2019-02-09 13:54 | Emergency (ER) | payer MEDICARE, MEDICAID ==
--- NOTE | 2019-02-09 14:28 | ER Document Report ---
ED Medical Screen (RME) - General Chief Complaint: General Weakness Stated Complaint: WEAKNESS Time Seen by Provider: 02/09/19 14:25 Primary Care Provider: KILLIAN VALLES MD [Primary Care Provider] - Follow up as needed Mode of Arrival: Medic Information source: Patient Notes: 53-year-old female presents to ED for complaint of weakness today. She states she went to physical therapy this morning was not feeling well had a little bit of chest pain and weakness. She states she is going to physical therapy because she tore her meniscus right. She states she has a little bit of shortness of breath. 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 She states she has developed A. fib since then. Patient states she has a history of high blood pressure and cholesterol. She states her admissions dean took her off of her medicine due to cramps in her legs and thighs she is supposed to go back for recheck on her cholesterol level. She states she has had a heart cath in 2010 with no blockages. I have greeted and performed a rapid initial assessment of this patient. A comprehensive ED assessment and evaluation of the patient, analysis of test results and completion of medical decision making process will be conducted by an additional ED providers. TRAVEL OUTSIDE OF THE [place] IN LAST 30 DAYS: No - Related Data Allergies/Adverse Reactions: amoxicillin trihydrate [From Augmentin] Allergy (Unknown, Verified 02/09/19 13:56) rash/hives Iodinated Contrast Media [IV Dye, Iodine Containing] Allergy (Unknown, Verified 02/09/19 13:56) breathing problems Potassium Clavulanate * [From Augmentin] Allergy (Unknown, Verified 02/09/19 13:56) rash/hives oxcarbazepine [From Trileptal] Allergy (Verified 02/09/19 13:56) Generalized rash morphine Adverse Reaction (Severe, Verified 02/09/19 13:56) Change in behavior Past Medical History - Past Medical History Cardiac Medical History: Reports: Hx Hypercholesterolemia, Hx Hypertension, Hx Heart Murmur - MVP Pulmonary Medical History: Reports: Hx Bronchitis, Hx Pneumonia, Hx Sleep Apnea Comment Only: Hx COPD - sleep apnea Neurological Medical History: Reports: Hx Cerebrovascular Accident Renal/ Medical History: Reports: Hx Ovarian Cysts - ovaries removed. Denies: Hx Peritoneal Dialysis GI Medical History: Reports: Hx Gastroesophageal Reflux Disease Musculoskeltal Medical History: Psychiatric Medical History: Reports: Hx Depression - MDD Infectious Medical History: Past Surgical History: Reports: Hx Cardiac Catheterization, Hx Cardiac Surgery - Pacemaker for sick sinus syndrome, Hx Section, Hx Hysterectomy, Hx Neurologic Surgery - Two procedures for right-sided trigeminal neuralgia, Hx Pacemaker - for SSS in July of 2012 - Immunizations Hx Diphtheria, Pertussis, Tetanus Vaccination: Yes Physical Exam - Vital signs Vitals: Temp Pulse Resp BP Pulse Ox 97.3 F 63 16 101/58 L 99 02/09/19 14:02/09/19 14:02/09/19 14:02/09/19 14:02/09/19 14:23 Course - Vital Signs Vital signs: Temp Pulse Resp BP Pulse Ox 97.3 F 63 16 101/58 L 99 02/09/19 14:02/09/19 14:02/09/19 14:02/09/19 14:02/09/19 14:23 Doctor's Discharge - Discharge Referrals: KILLIAN VALLES MD [Primary Care Provider] - Follow up as needed
[2019-02-09] MEDS ORDERED: ASPIRIN 81 MG TABLET, CHEWABLE PO ONE (14:29)
--- NOTE | 2019-02-09 15:09 | RADIOLOGY REPORT (SQ) ---
EXAM DESCRIPTION: CHEST 2 VIEWS COMPLETED DATE/TIME: 02/09/2019 2:47 pm REASON FOR STUDY: chest pain weakness COMPARISON: 12/23/2018 EXAM PARAMETERS: NUMBER OF VIEWS: two views TECHNIQUE: Digital Frontal and Lateral radiographic views of the chest acquired. RADIATION DOSE: NA LIMITATIONS: none FINDINGS: LUNGS AND PLEURA: No opacities, masses or pneumothorax. No pleural effusion. MEDIASTINUM AND HILAR STRUCTURES: No masses or contour abnormalities. HEART AND VASCULAR STRUCTURES: Cardiomegaly with left chest multi lead pacer. BONES: No acute findings. HARDWARE: None in the chest. OTHER: No other significant finding. IMPRESSION: Cardiomegaly without acute abnormality of the lungs. TECHNICAL DOCUMENTATION: JOB ID: [id number] [employer]- All Rights Reserved Reading location - IP/workstation name: [email or web address]
[2019-02-09 15:16] LABS: ABSOLUTE EOSINOPHILS # (AUTO) 0.2 10^3/uL (0.0-0.6); ABSOLUTE LYMPHOCYTES (AUTO) 2.3 10^3/uL (0.5-4.7); ABSOLUTE MONOCYTES (AUTO) 0.3 10^3/uL (0.1-1.4); ABSOLUTE NEUT (AUTO) 5.5 10^3/uL (1.7-8.2); BASOPHILS % (AUTO) 0.4 % (0-2); EOSINOPHILS % (AUTO) 2.1 % (0-6); HEMATOCRIT 37.1 % (36.0-47.0); HEMOGLOBIN 12.3 g/dL (12.0-15.5); LYMPHOCYTES % (AUTO) 27.3 % (13-45); MEAN CORPUSCULAR HEMOGLOBIN 28.6 pg (27.0-33.4); MEAN CORPUSCULAR HGB CONC 33.1 g/dL (32.0-36.0); MEAN CORPUSCULAR VOLUME 86 fl (80-97); MONOCYTES % (AUTO) 4.1 % (3-13); PLATELET COUNT 207 10^3/uL (150-450); RED CELL DISTRIBUTION WIDTH 13.6 % (11.5-14.0); SEGMENTED NEUTROPHILS % (AUTO) 66.1 % (42-78); TOTAL CELLS COUNTED % (AUTO) 100 %; WHITE BLOOD COUNT 8.4 10^3/uL (4.0-10.5)
[2019-02-09 15:25] LABS: INTERNATIONAL RATION (INR) 0.97; PROTHROMBIN TIME 12.9 SEC (11.4-15.4)
[2019-02-09 15:26] LABS: PARTIAL THROMBOPLASTIN TIME 28.4 SEC (23.5-35.8)
[2019-02-09 15:38] LABS: ALBUMIN 4.1 g/dL (3.5-5.0); ALKALINE PHOSPHATASE 46 U/L (38-126); ANION GAP 6 (5-19); ASPARTATE AMINO TRANSFERASE 24 U/L (14-36); BILIRUBIN,DIRECT 0.2 mg/dL (0.0-0.4); BILIRUBIN,TOTAL 0.5 mg/dL (0.2-1.3); BLOOD UREA NITROGEN 19 mg/dL (7-20); CALCIUM 9.7 mg/dL (8.4-10.2); CARBON DIOXIDE 29 mmol/L (22-30); CHLORIDE 104 mmol/L (98-107); CREATINE KINASE 157 U/L (30-135); GLUCOSE 103 mg/dL (75-110); POTASSIUM 3.9 mmol/L (3.6-5.0); TOTAL PROTEIN 6.9 g/dL (6.3-8.2)
[2019-02-09 15:50] LABS: CREATINE KINASE MB 0.91 ng/mL (<4.55); TROPONIN I 0.024 ng/mL
[2019-02-09] MEDS ORDERED: NORMAL SALINE 1000 ML 1,000 ML IV ONE (17:51)
--- NOTE | 2019-02-09 18:32 | ER Document Report ---
Entered by ROLANDO SCHMITT SCRIBE 02/09/19 1737 Acting as scribe for:JAIRO ALLISON MD ED Dizziness/Weakness - General Chief Complaint: General Weakness Stated Complaint: WEAKNESS Time Seen by Provider: 02/09/19 14:25 Primary Care Provider: KILLIAN VALLES MD [Primary Care Provider] - Follow up as needed Mode of Arrival: Medic Information source: Patient, [facility] Records Notes: 53-year-old female who presents to the emergency department today with complaints of generalized weakness with chest pain this morning at physical therapy. Patient was seen on December 23 for the same complaints. At that time the patient was seen by mental health as her mother was concerned about her lack of sleeping. Patient asked today if she has been getting enough sleep and she responds with "what's that?". Patient had a negative cardiac catheterization in 2010. Patient had a pacemaker placed due to sick sinus syndrome. 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 TRAVEL OUTSIDE OF THE [place] IN LAST 30 DAYS: No - Related Data Allergies/Adverse Reactions: amoxicillin trihydrate [From Augmentin] Allergy (Unknown, Verified 02/09/19 13:56) rash/hives Iodinated Contrast Media [IV Dye, Iodine Containing] Allergy (Unknown, Verified 02/09/19 13:56) breathing problems Potassium Clavulanate * [From Augmentin] Allergy (Unknown, Verified 02/09/19 13:56) rash/hives oxcarbazepine [From Trileptal] Allergy (Verified 02/09/19 13:56) Generalized rash morphine Adverse Reaction (Severe, Verified 02/09/19 13:56) Change in behavior Past Medical History - General Information source: Patient - Social History Smoking Status: Never Smoker Cigarette use (# per day): No Chew tobacco use (# tins/day): No Frequency of alcohol use: Occasional Drug Abuse: None Lives with: Family Family History: Reviewed & Not Pertinent Patient has suicidal ideation: No Patient has homicidal ideation: No - Past Medical History Cardiac Medical History: Reports: Hx Hypercholesterolemia, Hx Hypertension, Hx Heart Murmur - MVP Pulmonary Medical History: Reports: Hx Bronchitis, Hx Pneumonia, Hx Sleep Apnea Neurological Medical History: Reports: Hx Cerebrovascular Accident - residual right sided weakness Renal/ Medical History: Reports: Hx Ovarian Cysts GI Medical History: Reports: Hx Gastroesophageal Reflux Disease Musculoskeletal Medical History: Psychiatric Medical History: Reports: Hx Depression - MDD Infectious Medical History: Past Surgical History: Reports: Hx Cardiac Catheterization, Hx Cardiac Surgery, Hx Section, Hx Hysterectomy, Hx Neurologic Surgery - Two procedures for right-sided trigeminal neuralgia, Hx Pacemaker - for SSS in July of 2012 - Immunizations Hx Diphtheria, Pertussis, Tetanus Vaccination: Yes Hx Pneumococcal Vaccination: 06/03/10 Review of Systems - Review of Systems Constitutional: See HPI, Weakness, Other - not getting enough sleep EENT: No symptoms reported Cardiovascular: See HPI, Chest pain Respiratory: No symptoms reported Gastrointestinal: No symptoms reported Genitourinary: No symptoms reported Female Genitourinary: No symptoms reported Musculoskeletal: No symptoms reported Skin: No symptoms reported Hematologic/Lymphatic: No symptoms reported Neurological/Psychological: No symptoms reported -: Yes All other systems reviewed and negative Physical Exam - Vital signs Vitals: Temp Pulse Resp BP Pulse Ox 97.3 F 63 16 101/58 L 99 02/09/19 14:23 02/09/19 14:23 02/09/19 14:23 02/09/19 14:23 02/09/19 14:23 - Notes Notes: Physical Exam: General: Wakes up to name but falls back asleep continuously throughout exam. HEENT: Normocephalic. Atraumatic. PERRL. Extraocular movements intact. Oropharynx clear. Neck: Supple. Non-tender. Respiratory: No respiratory distress. Clear and equal breath sounds bilaterally. Cardiovascular: Regular rate and rhythm. Abdominal: Normal Inspection. Non-tender. No distension. Normal Bowel Sounds. Back: No gross abnormalities. Extremities: Moves all four extremities. Upper extremities: Normal inspection. Normal ROM. Lower extremities: Normal inspection. No edema. Normal ROM. Neurological: Normal cognition. AAOx4. Normal speech. Psychological: Flat affect. Very depressed. Skin: Warm. Dry. Normal color. Course - Re-evaluation Re-evalutation: 02/09/19 22:52 The patient has had 2 L of IV fluids. She is sound asleep and snoring. Her mother and her 38-week daughter or here in the room at this time. I have encouraged them to be sure that she does drink plenty of fluids throughout the day and that she gets plenty of sleep and rest. The mother reports that the patient has not been drinking that much fluid. The mother tells me the patient is on the go running from one appointment to another throughout the day and that she has not been sleeping much. - Vital Signs Vital signs: Temp Pulse Resp BP Pulse Ox 97.3 F 63 16 101/58 L 99 02/09/19 14:23 02/09/19 14:23 02/09/19 14:23 02/09/19 14:23 02/09/19 14:23 - Laboratory Result Diagrams: 02/09/19 14:41 02/09/19 14:41 Laboratory results interpreted by me: 02/09/19 02/09/19 14:41 19:15 Creatine Kinase 157 H Urine Ascorbic Acid 40 H Discharge - Discharge Clinical Impression: Weakness, Adult situational stress disorder Depression Qualifiers: Depression Type: unspecified Qualified Code(s): F32.9 - Major depressive disorder, single episode, unspecified Condition: Stable Disposition: HOME, SELF-CARE Additional Instructions: Dehydration Dehydration can result from vomiting or diarrhea, fever, or decreased intake of fluids. If severe, hospitalization and intravenous fluids may be required. Most cases are treated at home with fluids by mouth. For the next 24 hours, drink lots of clear fluids. In mild cases, this can be soda pop or sports drinks. For more severe dehydration, the doctor may recommend special fluids such as Pedialyte or Lytren. Try to get three liters (3 quarts) of fluid per day. If vomiting occurs, continue to drink the fluids frequently (every 15 to 20 minutes), but in small amounts (one or two ounces). Depending on the type of dehydration, the doctor may prescribe antinausea medicine or potassium replacements. Call the doctor or return for re-examination if you become progressively weak, vomit repeatedly, or have other new symptoms. Depression Your evaluation reveals that you have mental depression. While symptoms may be vague, they often include disturbance of sleep, fatigue, loss of appetite, and general loss of interest in life. While depression may be a side effect of drugs, or a reaction to a major change in your life, many cases have no known cause. If depression is acute, and related to a major loss in your life, you can expect it to clear completely with time. If you have been depressed a long time, are prone to repeated bouts of depression or low mood, or have been thinking of suicide, get help. Depression can be treated with anti-depressant medication and counselling. Long-term depression will often take a few weeks to clear, even with appropriate medication. Follow-up care is important. Contact your physician, the hospital emergency center, crisis line, or your counsellor if you are losing control or having self-destructive thoughts. Be sure to drink plenty of fluids throughout the day. Get plenty of rest and sleep every day. Take your regular medications as prescribed every day. Follow-up with your doctor if not improving. RETURN TO THE EMERGENCY ROOM IF ANY NEW OR WORSENING SYMPTOMS. Referrals: KILLIAN VALLES MD [Primary Care Provider] - Follow up as needed Scribe Attestation: 02/09/19 18:33 I personally performed the services described in the documentation, reviewed and edited the documentation which was dictated to the scribe in my presence, and it accurately records my words and actions. I personally performed the services described in the documentation, reviewed and edited the documentation which was dictated to the scribe in my presence, and it accurately records my words and actions.
[2019-02-09 19:44] LABS: APPEARANCE,URINE SLIGHTLY-CLOUDY; BILIRUBIN,URINE NEGATIVE (NEGATIVE); CALCIUM OXALATE CRYSTALS,URINE MODERATE /HPF; COLOR,URINE YELLOW; GLUCOSE, URINE NEGATIVE (NEGATIVE); KETONES,URINE NEGATIVE (NEGATIVE); LEUKOCYTE ESTERASE,URINE NEGATIVE (NEGATIVE); NITRITE,URINE NEGATIVE (NEGATIVE); PROTEIN,URINE NEGATIVE (NEGATIVE); URINE SPECIFIC GRAVITY 1.032; UROBILINOGEN,URINE NEGATIVE mg/dL (<2.0)
[2019-02-09 19:58] LABS: URINE AMPHETAMINES SCREEN NEGATIVE; URINE BARBITURATES SCREEN NEGATIVE; URINE BENZODIAZEPINES SCREEN NEGATIVE; URINE COCAINE SCREEN NEGATIVE; URINE MARIJUANA (THC) SCREEN NEGATIVE; URINE METHADONE SCREEN NEGATIVE; URINE PHENCYCLIDINE SCREEN NEGATIVE
[2019-02-09] MEDS ORDERED: DEXTROSE 5%-LACTATED RINGERS 1,000 ML IV ONE (20:09)
[2019-02-09 23:57] VITALS: BP 95/60
--- NOTE | 2019-02-10 08:14 | EKG REPORT ---
SEVERITY:- ABNORMAL ECG - ATRIAL-PACED RHYTHM LEFT VENTRICULAR HYPERTROPHY : Confirmed by: Vanda Curtis MD 10-Feb-2019 08:14:07
== END 2019-02-09 23:49 | disposition home or self-care (01) ==
LOC: ER 13:54
DX: R53.1 Weakness (principal); R07.9 Chest pain, unspecified; F32.9 Major depressive disorder, single episode, unspecified; F43.29 Adjustment disorder with other symptoms; Z88.6 Allergy status to analgesic agent; Z95.0 Presence of cardiac pacemaker
CPT/HCPCS: 93005; 36415; 82553; 82550; 83690; 85025; 85610; 85730; 80053; 81001; 84484; 80307; 83880; 71046; 93010; A9270; J7121; J7030; 96360; 96361; 99285

== ENCOUNTER 2019-04-03 16:26 | Emergency (ER) | payer OTHER, MEDICARE, MEDICAID ==
--- NOTE | 2019-04-03 17:22 | ER Document Report ---
ED Medical Screen (RME) - General Chief Complaint: Head Injury Stated Complaint: FALL-HEAD INJURY Time Seen by Provider: 04/03/19 17:16 Primary Care Provider: KILLIAN VALLES MD [Primary Care Provider] - Follow up as needed Mode of Arrival: Ambulatory Information source: Patient Notes: 53-year-old female presented to ED for complaint of head injury on Saturday morning. She states she walked outside stepped on a slick place feet went out from under her and hit the concrete. No loss of consciousness but she was dazed and laid there for few minutes. States she went home from her walk and laid down and slept all day Saturday. States yesterday headache and a lot of pressure behind her eye. [facility] not [facility] today they did a physical exam there and told her to get checked out because they could not tell if there was anything wrong inside of her head. Patient states she does have a history of high pressure and cholesterol. She was put on blood pressure and cholesterol medicine. She had to get off of the cholesterol medicine due to muscle cramping in the lower body. She states she does not have a history of migraines in high school but not since then. She denies any nausea or vomiting with the headache. She states there is no neurological symptoms except for the pain behind her eyes and the headache. I have greeted and performed a rapid initial assessment of this patient. A comprehensive ED assessment and evaluation of the patient, analysis of test results and completion of medical decision making process will be conducted by an additional ED providers. TRAVEL OUTSIDE OF THE [place] IN LAST 30 DAYS: No - Related Data Allergies/Adverse Reactions: amoxicillin trihydrate [From Augmentin] Allergy (Unknown, Verified 02/09/19 13:56) rash/hives Iodinated Contrast Media [IV Dye, Iodine Containing] Allergy (Unknown, Verified 02/09/19 13:56) breathing problems Potassium Clavulanate * [From Augmentin] Allergy (Unknown, Verified 02/09/19 13:56) rash/hives oxcarbazepine [From Trileptal] Allergy (Verified 02/09/19 13:56) Generalized rash morphine Adverse Reaction (Severe, Verified 02/09/19 13:56) Change in behavior Past Medical History - Past Medical History Cardiac Medical History: Reports: Hx Hypercholesterolemia, Hx Hypertension, Hx Heart Murmur - MVP Pulmonary Medical History: Reports: Hx Bronchitis, Hx Pneumonia, Hx Sleep Apnea Comment Only: Hx COPD - sleep apnea Neurological Medical History: Reports: Hx Cerebrovascular Accident - residual right sided weakness Renal/ Medical History: Reports: Hx Ovarian Cysts. Denies: Hx Peritoneal Dialysis GI Medical History: Reports: Hx Gastroesophageal Reflux Disease Musculoskeltal Medical History: Psychiatric Medical History: Reports: Hx Depression - MDD Infectious Medical History: Past Surgical History: Reports: Hx Cardiac Catheterization, Hx Cardiac Surgery, Hx Section, Hx Hysterectomy, Hx Neurologic Surgery - Two procedures for right-sided trigeminal neuralgia, Hx Pacemaker - for SSS in July of 2012 - Immunizations Hx Diphtheria, Pertussis, Tetanus Vaccination: Yes Physical Exam - Vital signs Vitals: Temp Pulse Resp BP Pulse Ox 97.9 F 73 12 136/80 H 96 04/03/19 16:53 04/03/19 16:53 04/03/19 16:53 04/03/19 16:53 04/03/19 16:53 Course - Vital Signs Vital signs: Temp Pulse Resp BP Pulse Ox 97.9 F 73 12 136/80 H 96 04/03/19 16:53 04/03/19 16:53 04/03/19 16:53 04/03/19 16:53 04/03/19 16:53 Doctor's Discharge - Discharge Referrals: KILLIAN VALLES MD [Primary Care Provider] - Follow up as needed
[2019-04-03] MEDS ORDERED: IBUPROFEN 800 MG TABLET PO ONE (17:23)
[2019-04-03] MEDS ORDERED: PROCHLORPERAZINE MALEATE 10 MG TABLET PO ONE (17:26)
--- NOTE | 2019-04-03 19:43 | ER Document Report ---
HPI - HPI Time Seen by Provider: 04/03/19 17:16 Pain Level: 4 Context: Patient is a 53-year-old female with a history of benny maker placement, CVA, hypertension, high cholesterol presents to the emergency department with a chief complaint of head injury. Patient reports around 4:15 in the morning on Saturday (two days ago), she was getting her morning exercise and walking when she stepped on a wet area. Patient reports this is a mixture of rain and sand. Patient reports her feet slipped out from underneath her causing her to fall backwards. Patient reports she did strike the back of her head. Patient denies loss of consciousness but does report being dazed for about 2 to 3 minutes afterwards. Patient reports she got up after the fall and continued her morning exercise. Patient reports she was tired for the rest of the day and did rest. Patient denies use of blood thinners. Patient denies vomiting. at the bedside reports that the patient has been acting herself. Patient states she is continued to exercise and walks 3 miles every morning since then. Patient states she did go to her primary care physician this morning, was told the doctor was not in the office and the nurse told her to come to the emergency department for an evaluation. Patient denies any new neck or back pain that is different from her normal. - REPRODUCTIVE Reproductive: DENIES: : Past Medical History - General Information source: Patient - Social History Smoking Status: Never Smoker Chew tobacco use (# tins/day): No Frequency of alcohol use: None Drug Abuse: None Lives with: Family, Spouse/Significant other Family History: Reviewed & Not Pertinent Patient has suicidal ideation: No Patient has homicidal ideation: No - Past Medical History Cardiac Medical History: Reports: Hx Hypercholesterolemia, Hx Hypertension, Hx Heart Murmur - MVP Pulmonary Medical History: Reports: Hx Bronchitis, Hx Pneumonia, Hx Sleep Apnea Comment Only: Hx COPD - sleep apnea EENT Medical History: Reports: None Neurological Medical History: Reports: Hx Cerebrovascular Accident - residual right sided weakness Endocrine Medical History: Reports: None Renal/ Medical History: Reports: Hx Ovarian Cysts. Denies: Hx Peritoneal Dialysis Malignancy Medical History: Reports: None GI Medical History: Reports: Hx Gastroesophageal Reflux Disease Musculoskeletal Medical History: Reports None Skin Medical History: Reports None Psychiatric Medical History: Reports: Hx Depression - MDD Traumatic Medical History: Reports: None Infectious Medical History: Reports: None Past Surgical History: Reports: Hx Cardiac Catheterization, Hx Cardiac Surgery, Hx Section, Hx Hysterectomy, Hx Neurologic Surgery - Two procedures for right-sided trigeminal neuralgia, Hx Pacemaker - for SSS in July of 2012 - Immunizations Hx Diphtheria, Pertussis, Tetanus Vaccination: Yes Hx Pneumococcal Vaccination: 06/03/10 Vertical Provider Document - CONSTITUTIONAL Agree With Documented VS: Yes Exam Limitations: No Limitations General Appearance: No Apparent Distress Notes: GENERAL: Well-appearing, well-nourished and in no acute distress. HEAD: Hematoma noted to the right parietal scalp without laceration, normocephalic. Negative spivey's sign. EYES: Pupils equal round and reactive to light, 3 mm bilaterally, extraocular movements intact, sclera anicteric, conjunctiva are normal. ENT: TMs normal, nares patent, oropharynx clear without exudates. Moist mucous membranes. NECK: Normal range of motion, supple without lymphadenopathy or JVD. Able to touch chin to chest. + tenderness to palpation to the right trapezius muscle. LUNGS: Breath sounds clear to auscultation bilaterally and equal. No wheezes rales or rhonchi. HEART: Regular rate and rhythm without murmurs, rubs or gallops. ABDOMEN: Soft, nontender, normoactive bowel sounds. No guarding, no rebound. No masses appreciated. BACK: No cervical, thoracic, lumbar midline tenderness. No saddle anesthesia, normal distal neurovascular exam. GENITOURINARY: Deferred. EXTREMITIES: Normal range of motion, no pitting or edema. No clubbing or cyanosis. NEUROLOGICAL: Cranial nerves II through XII grossly intact. Normal speech, normal gait. PSYCH: Normal mood, normal affect. SKIN: Warm, Dry, normal turgor, no rashes or lesions noted. - INFECTION CONTROL TRAVEL OUTSIDE OF THE [place] IN LAST 30 DAYS: No Course - Re-evaluation Re-evalutation: 04/03/19 19:49 I did discuss concussion symptoms with the patient and family member at the bedside. I did inform the to monitor over the weekend. My suspicion for intracranial abnormality is low as the patient is almost 3 days post fall and has not been symptomatic, except a headache. I did inform them that headaches are common after a head injury or signs of a concussion. Patient states this is not the worst headache of her life or typical of a migraine. - Vital Signs Vital signs: Temp Pulse Resp BP Pulse Ox 97.9 F 73 12 136/80 H 96 04/03/19 16:53 04/03/19 16:53 04/03/19 16:53 04/03/19 16:53 04/03/19 16:53 Discharge - Discharge Clinical Impression: Head injury due to trauma Qualifiers: Encounter type: initial encounter Qualified Code(s): S09.90XA - Unspecified injury of head, initial encounter Condition: Stable Disposition: HOME, SELF-CARE Additional Instructions: *Today you were seen in the emergency department after a fall. You did have a head injury almost 3 days ago. At this time I do not believe you require a CAT scan of your head as you have been asymptomatic, minus a headache. You have not had any alteration in your level of consciousness per your family member. Headaches are very typical of a concussion. Please take Tylenol and ibuprofen as needed for pain. *If you develop any new or worsening symptoms please return to the emergency department. *Please follow-up with your primary care physician. Concussion You have suffered a concussion -- a temporary loss of certain brain functions due to a mild brain injury. The recovery is usually rapid and comp lete. The temporary problems occurring with a concussion can include loss of consciousness, dizziness, nausea, vomiting, and confusion. Repeat concussions can cause brain damage. In the future, avoid activities that will cause a blow to your head. Wear a helmet for sports such as snowboarding, biking, or skating. It's important that someone be with you for the first 24 hours. During this time, do not exercise or drive a vehicle. Do not take any pain medication stronger than acetaminophen unless prescribed by the physician. Any significant changes should be reported immediately to the physician. Signs of a problem may include: (1) Mental confusion (2) Incoordination or staggering (3) Repeated or forceful vomiting (4) Clear or bloody drainage from ear, mouth, or nose (5) Severe headache, not relieved by acetaminophen or prescribed pain medication (6) Failure to improve in 24 hours Head Injury Your child's examination shows no evidence of brain injury. The child can therefore be safely observed at home. Give clear liquids only for the first eight hours. Acetaminophen or ibuprofen can safely be given for pain. Follow the directions on the bottle. Do not give any medication that may alter her/his level of alertness. Limit activity for the first 24 hours -- bed rest is advisable at first. Several times during the first 24 hours, check the patient to see if the pupils are equal in size to each other, that the patient is easily arousable, and responds normally. Contact your doctor or go to the hospital if any of the following things occur: Persistent or projectile vomiting, a seizure, confusion, unequal pupil size, difficulty in arousing the patient, worsening or continued headache, or failure to improve as expected. Head Injury Precautions At this point, there is no evidence that your head injury is serious. Observation is necessary, however. Take only clear liquids for the first few hours, unless told otherwise by the doctor. If no pain medication was prescribed, you may take acetaminophen according to the directions on the bottle. Do not take any medication that may alter your level of alertness (unless you've discussed it with the doctor first). Limit activity for the first 24 hours. Bed rest is best. During the first 24 hours, check to see approximately every two to three hours that the patient is easily arousable, responds normally, and can perform common tasks such as walking without difficulty. Contact your doctor or go to the hospital if any of the following things occur: Persistent vomiting, difficulty in arousing the patient, worsening or continued headache, or failure to improve as expected. Head injuries can cause symptoms that persist for a few days or even a few weeks. Referrals: KILLIAN VALLES MD [Primary Care Provider] - Follow up as needed
[2019-04-03 19:54] VITALS: BP 114/74
== END 2019-04-03 19:57 | disposition home or self-care (01) ==
LOC: ER 16:26
DX: S00.03XA Contusion of scalp, initial encounter (principal); R51 Headache; W01.0XXA Fall on same level from slipping, tripping and stumbling without subsequent striking against object, initial encounter; Y93.01 Activity, walking, marching and hiking; Y92.480 Sidewalk as the place of occurrence of the external cause; I10 Essential (primary) hypertension
CPT/HCPCS: 99283; S0183

== ENCOUNTER → 2019-04-09 | Outpatient (CLI) | payer OTHER, MEDICARE, MEDICAID ==
[2019-04-09 09:49] LABS: ALBUMIN 4.7 g/dL (3.5-5.0); ALKALINE PHOSPHATASE 67 U/L (38-126); ANION GAP 12 (5-19); ASPARTATE AMINO TRANSFERASE 45 U/L (14-36); BILIRUBIN,DIRECT 0.2 mg/dL (0.0-0.4); BILIRUBIN,TOTAL 0.7 mg/dL (0.2-1.3); BLOOD UREA NITROGEN 16 mg/dL (7-20); CALCIUM 9.8 mg/dL (8.4-10.2); CARBON DIOXIDE 25 mmol/L (22-30); CHLORIDE 103 mmol/L (98-107); CHOLESTEROL 261.51 mg/dL (0-200); CREATINE KINASE 345 U/L (30-135); GLUCOSE 70 mg/dL (75-110); POTASSIUM 4.1 mmol/L (3.6-5.0); TOTAL PROTEIN 8.7 g/dL (6.3-8.2); TRIGLYCERIDES 86 mg/dL (<150)
[2019-04-09 10:00] LABS: DIRECT LDL 145 mg/dL (<100)
== END ==
LOC: LAB 08:51
PROVIDERS: ATTEND Physician Assistant
DX: E78.00 Pure hypercholesterolemia, unspecified (principal); I48.0 Paroxysmal atrial fibrillation; R60.9 Edema, unspecified; Z79.899 Other long term (current) drug therapy
CPT/HCPCS: 36415; 80048; 80061; 80076; 82550; 83735

== ENCOUNTER 2019-04-17 15:10 | Emergency (ER) | payer MEDICARE, MEDICAID ==
--- NOTE | 2019-04-17 17:14 | ER Document Report ---
ED Medical Screen (RME) - General Chief Complaint: Headache Stated Complaint: HEADACHE Time Seen by Provider: 04/17/19 17:00 Primary Care Provider: KAREN GODINEZ MD [Primary Care Provider] - Follow up as needed Notes: Patient is a 53-year-old female who presents to the emergency department with a chief complaint of headache. Patient reports she does have a history of a stroke and a TIA. Patient reports her last TIA was in 2016. Patient reports she does have trouble walking up and down the steps due to her stroke. Patient reports she does have a history of A. fib and sick sinus syndrome in which she does have a pacemaker. Patient denies blood thinners. Patient reports yesterday around 9:30 AM she developed a pressure behind her right eye and tingling to both hands. Patient reports she has been more forgetful. Daughter who is in the room states that the patient is just not acting herself and she is concerned for a possible stroke. Patient states she did go to her doctor [facility] this morning and was given Toradol for her headache without relief. TRAVEL OUTSIDE OF THE [place] IN LAST 30 DAYS: No - Related Data Allergies/Adverse Reactions: amoxicillin trihydrate [From Augmentin] Allergy (Unknown, Verified 02/09/19 13:56) rash/hives Iodinated Contrast Media [IV Dye, Iodine Containing] Allergy (Unknown, Verified 02/09/19 13:56) breathing problems Potassium Clavulanate * [From Augmentin] Allergy (Unknown, Verified 02/09/19 13:56) rash/hives oxcarbazepine [From Trileptal] Allergy (Verified 02/09/19 13:56) Generalized rash morphine Adverse Reaction (Severe, Verified 02/09/19 13:56) Change in behavior Home Medications: Aspirin 81mg. Bupropion 300mg. Buspar 100mg BID. Lansoprazole 30mg. Loratidine 10mg. Trazadone 300mg. Clonazepam .5mg prn Past Medical History - Social History Frequency of alcohol use: None Drug Abuse: None - Past Medical History Cardiac Medical History: Reports: Hx Hypercholesterolemia, Hx Hypertension, Hx Heart Murmur - MVP Pulmonary Medical History: Reports: Hx Bronchitis, Hx Pneumonia, Hx Sleep Apnea Comment Only: Hx COPD - sleep apnea Neurological Medical History: Reports: Hx Cerebrovascular Accident - residual right sided weakness Renal/ Medical History: Reports: Hx Ovarian Cysts. Denies: Hx Peritoneal Dialysis GI Medical History: Reports: Hx Gastroesophageal Reflux Disease Musculoskeltal Medical History: Psychiatric Medical History: Reports: Hx Depression - MDD Infectious Medical History: Past Surgical History: Reports: Hx Cardiac Catheterization, Hx Cardiac Surgery, Hx Section, Hx Hysterectomy, Hx Neurologic Surgery - Two procedures for right-sided trigeminal neuralgia, Hx Pacemaker - for SSS in July of 2012 - Immunizations Hx Diphtheria, Pertussis, Tetanus Vaccination: Yes Physical Exam - Vital signs Vitals: Temp Pulse Resp BP Pulse Ox 97.7 F 87 17 123/75 100 04/17/19 15:51 04/17/19 15:51 04/17/19 15:51 04/17/19 15:51 04/17/19 15:51 Course - Re-evaluation Re-evalutation: 04/17/19 17:14 I have greeted and performed a rapid initial assessment of this patient. A comprehensive ED assessment and evaluation of the patient, analysis of test results and completion of the medical decision making process will be conducted by additional ED providers. - Vital Signs Vital signs: Temp Pulse Resp BP Pulse Ox 97.7 F 87 17 123/75 100 04/17/19 15:51 04/17/19 15:51 04/17/19 15:51 04/17/19 15:51 04/17/19 15:51 Doctor's Discharge - Discharge Referrals: KAREN GODINEZ MD [Primary Care Provider] - Follow up as needed
--- NOTE | 2019-04-17 18:22 | RADIOLOGY REPORT (SQ) ---
EXAM DESCRIPTION: CT HEAD WITHOUT COMPLETED DATE/TIME: 04/17/2019 6:01 pm REASON FOR STUDY: Slurred speech COMPARISON: CT brain 03/20/2009, 06/27/2010, 05/30/2016, 01/20/2017, 12/23/2018 TECHNIQUE: Axial images acquired through the brain without intravenous contrast. Images reviewed wi th bone, brain and subdural windows. Additional sagittal and coronal reconstructions were generated. Images stored on PACS. All CT scanners at this facility use dose modulation, iterative reconstruction, and/or weight based d osing when appropriate to reduce radiation dose to as low as reasonably achievable (ALARA). [facility]: Dose Right [facility]: CareDose [facility]: Dose Right [facility]: Teradose 4D [facility]: [employer] RADIATION DOSE: CT Rad equipment meets quality standard of care and radiation dose reduction techniq ues were employed. CTDIvol: 53.2 mGy. DLP: 964 mGy-cm. mGy. LIMITATIONS: None. FINDINGS: VENTRICLES: Normal size and contour. CEREBRUM: No masses. No hemorrhage. No midline shift. No evidence for acute infarction. Normal gra y/white matter differentiation. No areas of low density in the white matter. CEREBELLUM: Old right occipital craniotomy with focal encephalomalacia along the inferolateral right cerebellar hemisphere. This is stable compared to multiple previous studies. No posterior fossa acu te ischemic change, hemorrhage, or mass effect. Midline 4th ventricle. EXTRAAXIAL SPACES: No fluid collections. No masses. ORBITS AND GLOBE: No intra- or extraconal masses. Normal contour of globe without masses. CALVARIUM: No fracture. PARANASAL SINUSES: No fluid or mucosal thickening. SOFT TISSUES: No mass or hematoma. OTHER: No other significant finding. IMPRESSION: No acute findings. Old right occipital craniotomy with cerebellar encephalomalacia EVIDENCE OF ACUTE STROKE: NO. COMMENT: Quality ID # [id number]: Final reports with documentation of one or more dose reduction techniques (e.g., Automated exposure control, adjustment of the mA and/or kV according to patient size, use of iterative reconstruction technique) TECHNICAL DOCUMENTATION: JOB ID: [id number] [employer]- All Rights Reserved Reading location - IP/workstation name: [email or web address]
--- NOTE | 2019-04-17 18:26 | RADIOLOGY REPORT (SQ) ---
EXAM DESCRIPTION: CHEST SINGLE VIEW COMPLETED DATE/TIME: 04/17/2019 6:04 pm REASON FOR STUDY: Slurred speech COMPARISON: Chest films 02/09/2019, 04/25/2018 EXAM PARAMETERS: NUMBER OF VIEWS: One view. TECHNIQUE: Single frontal radiographic view of the chest acquired. RADIATION DOSE: NA LIMITATIONS: None. FINDINGS: LUNGS AND PLEURA: No opacities, masses or pneumothorax. No pleural effusion. MEDIASTINUM AND HILAR STRUCTURES: No masses. Contour normal. HEART AND VASCULAR STRUCTURES: Borderline cardiomegaly BONES: No acute findings. HARDWARE: Unchanged left-sided dual lead pacemaker OTHER: No other significant finding. IMPRESSION: NO ACUTE RADIOGRAPHIC FINDING IN THE CHEST. TECHNICAL DOCUMENTATION: JOB ID: [id number] [employer]- All Rights Reserved Reading location - IP/workstation name: [email or web address]
[2019-04-17 19:42] LABS: ABSOLUTE EOSINOPHILS # (AUTO) 0.3 10^3/uL (0.0-0.6); ABSOLUTE LYMPHOCYTES (AUTO) 2.6 10^3/uL (0.5-4.7); ABSOLUTE MONOCYTES (AUTO) 0.5 10^3/uL (0.1-1.4); ABSOLUTE NEUT (AUTO) 2.7 10^3/uL (1.7-8.2); BASOPHILS % (AUTO) 0.6 % (0-2); EOSINOPHILS % (AUTO) 5.5 % (0-6); HEMATOCRIT 35.1 % (36.0-47.0); HEMOGLOBIN 11.7 g/dL (12.0-15.5); LYMPHOCYTES % (AUTO) 42.8 % (13-45); MEAN CORPUSCULAR HEMOGLOBIN 29.1 pg (27.0-33.4); MEAN CORPUSCULAR HGB CONC 33.4 g/dL (32.0-36.0); MEAN CORPUSCULAR VOLUME 87 fl (80-97); MONOCYTES % (AUTO) 7.4 % (3-13); PLATELET COUNT 190 10^3/uL (150-450); RED BLOOD COUNT 4.03 10^6/uL (3.72-5.28); RED CELL DISTRIBUTION WIDTH 14.1 % (11.5-14.0); SEGMENTED NEUTROPHILS % (AUTO) 43.7 % (42-78); TOTAL CELLS COUNTED % (AUTO) 100 %; WHITE BLOOD COUNT 6.2 10^3/uL (4.0-10.5)
[2019-04-17 20:01] LABS: ALBUMIN 3.8 g/dL (3.5-5.0); ALKALINE PHOSPHATASE 54 U/L (38-126); ANION GAP 8 (5-19); ASPARTATE AMINO TRANSFERASE 26 U/L (14-36); BILIRUBIN,DIRECT 0.2 mg/dL (0.0-0.4); BILIRUBIN,TOTAL 0.6 mg/dL (0.2-1.3); BLOOD UREA NITROGEN 14 mg/dL (7-20); CALCIUM 9.3 mg/dL (8.4-10.2); CARBON DIOXIDE 25 mmol/L (22-30); CHLORIDE 106 mmol/L (98-107); GLUCOSE 83 mg/dL (75-110); POTASSIUM 3.9 mmol/L (3.6-5.0); TOTAL PROTEIN 6.6 g/dL (6.3-8.2)
[2019-04-17 20:17] LABS: INTERNATIONAL RATION (INR) 0.98; PARTIAL THROMBOPLASTIN TIME 30.2 SEC (23.5-35.8)
--- NOTE | 2019-04-17 20:28 | ER Document Report ---
ED General - General TRAVEL OUTSIDE OF THE [place] IN LAST 30 DAYS: No - Related Data Home Medications: Aspirin 81mg. Bupropion 300mg. Buspar 100mg BID. Lansoprazole 30mg. Loratidine 10mg. Trazadone 300mg. Clonazepam .5mg prn <BRE POTTS - Last Filed: 04/17/19 20:23> <TREY MCLEOD - Last Filed: 04/17/19 21:47> - General Chief Complaint: Headache Stated Complaint: HEADACHE Time Seen by Provider: 04/17/19 17:00 Primary Care Provider: KAREN GODINEZ MD [Primary Care Provider] - Follow up as needed - HPI Notes: This is a 53-year-old female with a history of prior CVA with mild residual right hemiparesis who since the time of her earlier stroke has been seen a number of times for headache chest pain dizziness. She comes into the emergency department today reporting similar symptoms for the past 2 days. She saw her primary care doctor this morning and was given IM Toradol. She reports partial relief of her headache but says she still does not feel she needs something add itional to control his symptoms. She denies any new focal neurologic symptoms. She denies fever, chills or rash. She denies a fall or trauma. She is felt mildly nauseated but has not vomited. (BRE POTTS) - Related Data Allergies/Adverse Reactions: amoxicillin trihydrate [From Augmentin] Allergy (Unknown, Verified 02/09/19 13:56) rash/hives Iodinated Contrast Media [IV Dye, Iodine Containing] Allergy (Unknown, Verified 02/09/19 13:56) breathing problems Potassium Clavulanate * [From Augmentin] Allergy (Unknown, Verified 02/09/19 13:56) rash/hives oxcarbazepine [From Trileptal] Allergy (Verified 02/09/19 13:56) Generalized rash morphine Adverse Reaction (Severe, Verified 02/09/19 13:56) Change in behavior Past Medical History - General Information source: Patient - Social History Smoking Status: Never Smoker Frequency of alcohol use: None Drug Abuse: None Family History: Reviewed & Not Pertinent Patient has suicidal ideation: No Patient has homicidal ideation: No - Past Medical History Cardiac Medical History: Reports: Hx Hypercholesterolemia, Hx Hypertension, Hx Heart Murmur - MVP Pulmonary Medical History: Reports: Hx Bronchitis, Hx Pneumonia, Hx Sleep Apnea Comment Only: Hx COPD - sleep apnea Neurological Medical History: Reports: Hx Cerebrovascular Accident - residual ri ght sided weakness Renal/ Medical History: Reports: Hx Ovarian Cysts. Denies: Hx Peritoneal Dialysis GI Medical History: Reports: Hx Gastroesophageal Reflux Disease Musculoskeletal Medical History: Psychiatric Medical History: Reports: Hx Depression - MDD Infectious Medical History: Past Surgical History: Reports: Hx Cardiac Catheterization, Hx Cardiac Surgery, Hx Section, Hx Hysterectomy, Hx Neurologic Surgery - Two procedures for right-sided trigeminal neuralgia, Hx Pacemaker - for SSS in July of 2012 - Immunizations Hx Diphtheria, Pertussis, Tetanus Vaccination: Yes Hx Pneumococcal Vaccination: 06/03/10 <BRE POTTS - Last Filed: 04/17/19 20:23> Review of Systems <BRE POTTS - Last Filed: 04/17/19 20:23> - Review of Systems Notes: Constitutional: Negative for fever. HENT: Negative for sore throat. Eyes: Negative for visual changes. Cardiovascular: Negative for chest pain. Respiratory: Negative for shortness of breath. Gastrointestinal: Negative for abdominal pain, vomiting or diarrhea. Genitourinary: Negative for dysuria. Musculoskeletal: Negative for back pain. Skin: Negative for rash. Neurological: As per HPI. 10 point ROS negative except as marked above and in HPI. (BRE POTTS) Physical Exam <BRE POTTS - Last Filed: 04/17/19 20:23> - Vital signs Vitals: Temp Pulse Resp BP Pulse Ox 97.7 F 87 17 123/75 100 04/17/19 15:51 04/17/19 15:51 04/17/19 15:51 04/17/19 15:51 04/17/19 15:51 Notes: GENERAL: Female patient appearing approximately her stated age. SKIN: Good turgor no rashes. HEAD: Normocephalic atraumatic. EYES: PERRLA. Conjunctivae and sclerae clear. EARS: CANALS AND TMS CLEAR. NOSE: CLEAR. MOUTH: Moist mucosa. Good dentition. No stridor or edema. No drooling. Throat: Clear. NECK: Supple. No masses or thyromegaly. No adenopathy. Carotids 2+ without bruits. No JVD. BACK: Symmetrical without tenderness. CHEST: Respirations unlabored. Breath sounds clear and symmetrical. HEART: Regular rhythm. No murmur gallop or rub. ABDOMEN: Soft nontender without masses, organomegaly or rebound. Bowel sounds normally active. No bruits. GENITALIA: Deferred. EXTREMITIES: No edema. No calf tenderness. Cap refill less than 1.5 seconds. Dorsalis pedis and posterior tibial pulses 3+ and symmetrical. NEUROLOGICAL: GCS 15. Alert and oriented x3. Normal gait. Fluent speech. Cranial nerves II through XII intact. Sensation is grossly intact. Minimal motor weakness right lower extremity which patient reports to be residual from prior stroke. Cerebellar normal. Normal tone. (BRE POTTS) Course - Laboratory Result Diagrams: 04/17/19 19:25 04/17/19 19:25 - Diagnostic Test Radiology reviewed: Reports reviewed <BRE POTTS - Last Filed: 04/17/19 20:23> - Laboratory Result Diagrams: 04/17/19 19:25 04/17/19 19:25 - EKG Interpretation by Pr EKG shows normal: Sinus rhythm Rate: Normal Rhythm: NSR Voltage: Consistant with LVH P Waves: Other - Atrial abnormality. Heart block present: 1st Degree <TREY MCLEOD - Last Filed: 04/17/19 21:47> - Re-evaluation Re-evalutation: 04/17/19 20:[address] is consistent with prior studies with no new acute findings. Chest x- ray shows no active disease. EKG is unchanged from baseline. Labs remain pending at this time. Further disposition of this patient is turned over to Dr. Chris Mcleod. (BRE POTTS) 04/17/19 21:35 Patient complains of nausea and associated right frontal temporal area headache. Patient is given Zofran and Tylenol in the emergency department a prescription for tramadol 50 mg, 8 tablets were given, she is instructed to use this in conjunction with Tylenol for relief of the headache. She is also given Zofran for nausea. (TREY MCLEOD) - Vital Signs Vital signs: Temp Pulse Resp BP Pulse Ox 97.7 F 87 17 123/75 100 04/17/19 15:51 04/17/19 15:51 04/17/19 15:51 04/17/19 15:51 04/17/19 15:51 - Laboratory Laboratory results interpreted by me: 04/17/19 19:25 Hgb 11.7 L Hct 35.1 L RDW 14.1 H 04/17/19 21:41 I have reviewed laboratory data and used this information and the treatment decisions regarding the patient. (TREY MCLEOD) Discharge <BRE POTTS - Last Filed: 04/17/19 20:23> <TREY MCLEOD - Last Filed: 04/17/19 21:47> - Discharge Clinical Impression: Post-concussion headache, Nausea without vomiting Headache Qualifiers: Headache type: post-traumatic Headache chronicity pattern: acute headache Intractability: not intractable Qualified Code(s): G44.319 - Acute post- traumatic headache, not intractable Condition: Good Disposition: HOME, SELF-CARE Instructions: Headache ([facility]) Additional Instructions: Use the tramadol with Tylenol for headache control, use Zofran for nausea Rest, no exaggerated activities or exercise until symptoms have resolved. Follow-up with your primary care doctor as needed. Referrals: KAREN GODINEZ MD [Primary Care Provider] - Follow up as needed
[2019-04-17 20:37] LABS: ERYTHROCYTE SEDIMENTATION RATE 25 mm/hr (0-30)
[2019-04-17] MEDS ORDERED: ACETAMINOPHEN 325 MG TABLET PO ONE (21:41)
[2019-04-17] MEDS ORDERED: ONDANSETRON 4 MG TAB.RAPDIS PO ONE (21:42)
[2019-04-17 22:13] VITALS: BP 119/86
--- NOTE | 2019-04-18 11:46 | EKG REPORT ---
SEVERITY:- ABNORMAL ECG - SINUS RHYTHM FIRST DEGREE AV BLOCK PROBABLE LEFT ATRIAL ABNORMALITY LEFT VENTRICULAR HYPERTROPHY : Confirmed by: Vanda Curtis MD 18-Apr-2019 11:45:00
== END 2019-04-17 22:13 | disposition home or self-care (01) ==
LOC: ER 15:10
DX: G44.319 Acute post-traumatic headache, not intractable (principal); R11.0 Nausea; I69.341 Monoplegia of lower limb following cerebral infarction affecting right dominant side; I10 Essential (primary) hypertension; I44.0 Atrioventricular block, first degree; F32.9 Major depressive disorder, single episode, unspecified; K21.9 Gastro-esophageal reflux disease without esophagitis; Z79.899 Other long term (current) drug therapy; Z79.82 Long term (current) use of aspirin; Z88.0 Allergy status to penicillin; Z91.041 Radiographic dye allergy status; Z88.8 Allergy status to other drugs, medicaments and biological substances
CPT/HCPCS: 93005; 36415; 85025; 85652; 85610; 85730; 80053; 84484; 71045; 70450; 93010; A9270 ×2; 82962; 99284; S0119

== ENCOUNTER → 2020-01-08 | Outpatient (CLI) | payer MEDICAID, MEDICARE ==
[2020-01-08 12:29] LABS: ALBUMIN 4.4 g/dL (3.5-5.0); ALKALINE PHOSPHATASE 53 U/L (38-126); ANION GAP 7 (5-19); ASPARTATE AMINO TRANSFERASE 27 U/L (14-36); BILIRUBIN,TOTAL 0.5 mg/dL (0.2-1.3); BLOOD UREA NITROGEN 12 mg/dL (7-20); CALCIUM 9.5 mg/dL (8.4-10.2); CARBON DIOXIDE 27 mmol/L (22-30); CHLORIDE 106 mmol/L (98-107); CHOLESTEROL 222.83 mg/dL (0-200); GLUCOSE 92 mg/dL (75-110); POTASSIUM 4.3 mmol/L (3.6-5.0); TOTAL PROTEIN 7.6 g/dL (6.3-8.2); TRIGLYCERIDES 85 mg/dL (<150)
[2020-01-08 12:40] LABS: DIRECT LDL 117 mg/dL (<100)
== END ==
LOC: OD 11:13
PROVIDERS: ATTEND Internal Medicine Cardiovascular Disease
DX: I48.0 Paroxysmal atrial fibrillation (principal); Z79.899 Other long term (current) drug therapy
CPT/HCPCS: 36415; 80048; 80061; 80076; 83735; 84443